=== PATIENT | male | born 1970 | race Caucasian/White ===

== ENCOUNTER 2017-01-23 13:46 | Emergency (ER) | payer MEDICARE, OTHER ==
[2017-01-23] MEDS ORDERED: DIPH,PERTUS(ACELL)TETVAC-LF 0.5 ML VIAL IM ONE (14:03)
--- NOTE | 2017-01-23 14:26 | ED ---
General Adult HPI - General Chief complaint: Extremity Injury, Lower Stated complaint: foot injury Time Seen by Provider: 01/23/17 13:57 Source: patient, RN notes reviewed Mode of arrival: ambulatory Limitations: no limitations - History of Present Illness Initial comments: This is a 47-year-old male who presents with left foot pain. Patient states he dropped a computer panel on his foot last night around 11 PM. Patient has noticed some increased bruising and swelling. Patient has noticed a laceration on the foot as well. Patient denies any numbness/weakness/tingling. Patient is ambulatory but states is painful. Patient is not up-to-date on his tetanus shot.Patient denies any recent fever, chills, shortness breath, chest pain, abdominal pain, nausea/vomiting/diarrhea, back pain, hematuria, headache, or visual changes, or any other complaints. - Related Data Home Medications Medication Instructions Recorded Confirmed Cyclobenzaprine [Flexeril] 10 mg PO TID PRN 01/23/17 01/23/17 HYDROcodone/APAP 7.5-325MG [[place] 1 tab PO BID PRN 01/23/17 01/23/17 7.5-325] Lisinopril [Zestril] 20 mg PO DAILY 01/23/17 01/23/17 Loratadine [Claritin] 10 mg PO DAILY 01/23/17 01/23/17 Omeprazole 20 mg PO BID 01/23/17 01/23/17 Tolterodine [Detrol] 2 mg PO BID 01/23/17 01/23/17 Previous Rx's Medication Instructions Recorded Cephalexin [Keflex] 500 mg PO Q12HR 5 Days 01/23/17 Allergies Allergy/AdvReac Type Severity Reaction Status Date / Time No Known Allergies Allergy Unverified 01/23/17 14:05 Review of Systems ROS Statement: Those systems with pertinent positive or pertinent negative responses have been documented in the HPI. ROS Other: All systems not noted in ROS Statement are negative. Past Medical History Past Medical History: No Reported History History of Any Multi-Drug Resistant Organisms: None Reported Past Surgical History: No Surgical Hx Reported Past Psychological History: No Psychological Hx Reported Smoking Status: Never smoker Past Alcohol Use History: None Reported Past Drug Use History: None Reported General Exam - General Exam Comments Initial Comments: General: The patient is awake and alert, in no distress, and does not appear acutely ill. Neck: The neck is supple, there is no tenderness or JVD. Cardiovascular: There is a regular rate and rhythm. No murmur, rub or gallop is appreciated. Respiratory: Lungs are clear to auscultation, respirations are non-labored, breath sounds are equal. No wheezes, stridor, rales, or rhonchi. Musculoskeletal: There is tenderness to palpation over the third digit of the left foot with ecchymosis around the third MTP joint. Patient has full range of motion, strength 5/5 and Sensation intact. Posterior tibial and dorsalis pedis pulses are 2+ bilaterally. Capillary refill is normal at less than 2 seconds. Neurological: A&O x 3. CN II-XII intact, There are no obvious motor or sensory deficits. Coordination appears grossly intact. Speech is normal. Skin: There is some mild ecchymosis around the third MTP joint of the left foot. There is an approximately 1.5 cm superficial laceration to the third digit of the left foot. Skin is warm and dry and no rashes or lesions are noted. Psychiatric: Normal mood and affect. Limitations: no limitations Course Vital Signs 01/23/17 14:09 Temperature 98.5 F Pulse Rate 107 H Respiratory 20 Rate Blood Pressure 136/76 O2 Sat by Pulse 96 Oximetry Procedures - Procedures Initial comment: The skin was anesthetized with 1% lidocaine. The laceration was then thoroughly cleansed and irrigated with normal saline. The wound was inspected, and there was no evidence of injury to deep structures. No foreign body was noted in the wound. A total of 3 skin sutures were placed utilizing 5-0 Ethilon. Laceration is approx 1.5 cm. Medical Decision Making - Medical Decision Making This is a 47-year-old male presents with left foot pain since 11 PM last night. On physical exam There is tenderness to palpation over the third digit of the left foot with ecchymosis around the third MTP joint. Patient has full range of motion, strength 5/5 and Sensation intact. Posterior tibial and dorsalis pedis pulses are 2+ bilaterally. Capillary refill is normal at less than 2 seconds. There is some mild ecchymosis around the third MTP joint of the left foot. There is an approximately 1.5 cm superficial laceration to the third digit of the left foot. An x-ray of the left foot was done and reviewed showing :There is no acute fracture or dislocation in the left foot. Reportedly Dr. Hernandez. Patient needs wound closure as wound edges are not well approximated. The skin was anesthetized with 1% lidocaine. The laceration was then thoroughly cleansed and irrigated with normal saline. The wound was inspected, and there was no evidence of injury to deep structures. No foreign body was noted in the wound. A total of 3 skin sutures were placed utilizing 5-0 Ethilon. Laceration is approx 1.5 cm. I discussed the risk of infection with wounds that are closed after 6-8 hours. Patient's wound has been open since 11 PM last night. I discussed signs and symptoms of infection. Discussed that patient needs to come in sooner next time if he thinks a wound will need stitches. Patient was given a tetanus shot in the [facility]. Patient will be put on a short course of Keflex. Discussed Neosporin to the wound. Discussed return parameters. I discussed occult fracture. I discussed that sutures need to be removed in 8-10 days. I discussed that rinsing and showering are okay but to avoid submerging the wound in water. Discussed [id number] Tylenol and Motrin as needed for any pain. Discussed keep the wound clean and dry and covered. Discussed that patient should follow up with PCP in one to 2 days or return to the [facility] for any worsening symptoms or any further concerns. Patient was receptive to this plan patient was discharged home. Disposition Clinical Impression: Laceration, Foot contusion Disposition: HOME SELF-CARE Condition: Good Instructions: Foot Contusion (ED), Care For Your Stitches (ED), Laceration (ED) Additional Instructions: Please have sutures removed in 8-10 days. Please finish entire course of antibiotics. Please use Tylenol and Motrin for pain. May use ice to the area. Please do not submerge the wound in water but rinsing and showering are okay. Please keep wound clean, dry, covered and may apply Neosporin to it. Please watch for signs and symptoms of infection such as increasing redness, swelling, tenderness or any drainage. If symptoms do not improve in the next 7 days repeat x-rays may be needed to rule out occult fracture. Please use medication as discussed. Please follow-up with family doctor in the next 2 days of symptoms have not improved. Please return to emergency room if the symptoms increase or worsen or for any other concerns. Prescriptions: Cephalexin [Keflex] 500 mg PO Q12HR 5 Days Referrals: Max Brown MD [Primary Care Provider] - 1-2 days Time of Disposition: 15:21
--- NOTE | 2017-01-23 14:46 | XR ---
EXAMINATION TYPE: XR foot complete LT DATE OF EXAM: 01/23/2017 2:40 PM CLINICAL HISTORY: Left foot pain after injury worse over second digit, object dropped on foot TECHNIQUE: Frontal, lateral, and oblique images of the left foot are obtained. COMPARISON: None FINDINGS: There is no acute fracture/dislocation evident in the left foot. There is varus positionin g fourth and fifth and flexion of second through fifth toes. The overlying soft tissue appears unrem arkable. IMPRESSION: There is no acute fracture or dislocation in the left foot.
[2017-01-23 15:28] VITALS: BP 141/66; PULSE 89; RESP 18; TEMP 97.8
== END 2017-01-23 15:27 | disposition home or self-care (01) ==
LOC: EC 13:46
DX: S91.312A Laceration without foreign body, left foot, initial encounter (principal); Z23 Encounter for immunization; Z79.899 Other long term (current) drug therapy; W20.8XXA Other cause of strike by thrown, projected or falling object, initial encounter
CPT/HCPCS: 12001; 90471; 90715; 99283

== ENCOUNTER → 2020-04-23 | Outpatient (CLI) | payer MEDICARE, OTHER ==
[2020-04-23 11:07] LABS: Basophils % (A) 0 %; Eosinophils # (A) 0.4 k/uL (0-0.7); Eosinophils % (A) 6 %; HCT 49.4 % (39.0-53.0); HGB 16.6 gm/dL (13.0-17.5); Lymphocytes # (A) 1.5 k/uL (1.0-4.8); Lymphocytes % (A) 23 %; MCH 28.9 pg (25.0-35.0); MCHC 33.6 g/dL (31.0-37.0); Mean Platelet Volume 8.1; Monocytes # (A) 0.4 k/uL (0-1.0); Monocytes % (A) 6 %; Neutrophils # (A) 4.3 k/uL (1.3-7.7); Neutrophils % (A) 63 %; Platelet Count 289 k/uL (150-450); RBC 5.75 m/uL (4.30-5.90); RDW 13.4 % (11.5-15.5); WBC 6.8 k/uL (3.8-10.6)
[2020-04-23 16:26] LABS: African American GFR (CKD) 90.2 (60.0-200.0); Albumin 4.8 g/dL (3.80-4.90); Albumin/Globulin Ratio 2.29 (1.60-3.17); Anion Gap 8.9 mmol/L (4.00-12.00); BUN/Creat Ratio 13.64 Ratio (12.00-20.00); Calcium 9.7 mg/dL (8.7-10.3); Carbon Dioxide 27.1 mmol/L (21.6-31.8); Globulin 2.1 g/dL (1.6-3.3); Non-African American GFR(CKD) 77.9 (60.0-200.0); Potassium 4.7 mmol/L (3.5-5.5); Total Bilirubin 0.8 mg/dL (0.2-1.2); Total Protein 6.9 g/dL (6.2-8.2)
[2020-04-23 18:51] LABS: Hemoglobin A1C 4.7 % (4.0-6.0)
[2020-04-25 04:36] LABS: Hepatitis A Antibody IgM Non-Reactive (Non-Reactive); Hepatitis B Core IgM Non-Reactive (Non-Reactive); Hepatitis B Surface Antigen Non-Reactive (Non-Reactive); Hepatitis C IgG Antibody Non-Reactive (Non-Reactive)
== END | disposition home or self-care (01) ==
LOC: LABWHC1 09:22
PROVIDERS: ATTEND Internal Medicine
DX: I10 Essential (primary) hypertension (principal); N40.1 Benign prostatic hyperplasia with lower urinary tract symptoms; R73.01 Impaired fasting glucose; R30.0 Dysuria; R94.5 Abnormal results of liver function studies
CPT/HCPCS: 36415; 80053; 80074; 83036; 84153; 85025

== ENCOUNTER 2021-01-11 06:31 | Emergency (ER) | payer MEDICARE, OTHER ==
[2021-01-11 06:40] VITALS: BP 164/96; PULSE 103; RESP 24; TEMP 98.1
--- NOTE | 2021-01-11 06:55 | ED ---
Male Urogenital HPI - General Chief complaint: Urogenital Stated complaint: Urogenital Time Seen by Provider: 01/11/21 06:41 Source: patient, RN notes reviewed Mode of arrival: ambulatory Limitations: no limitations - History of Present Illness Initial comments: 50-year-old male presents emergency Department with chief complaint of urinary frequency, lower abdominal pressure. Patient states that she he suffer with overactive bladder and which she is been on multiple medications. Patient does see Dr. Dean urologist in which patient states he feels a medication stop working. Patient's that she's been going a small moderate 10-30 minutes. denies fevers chills back pain flank pain on the usual. Patient denies any bladder retention the past or any bowel incontinence. Patient denies any lower extremity paresthesias. Patient denies any recent trauma no prior urinary tract infections. - Related Data Home Medications Medication Instructions Recorded Confirmed Cyclobenzaprine [Flexeril] 10 mg PO TID PRN 01/23/17 01/23/17 HYDROcodone/APAP 7.5-325MG [[place] 1 tab PO BID PRN 01/23/17 01/23/17 7.5-325] Loratadine [Claritin] 10 mg PO DAILY 01/23/17 01/23/17 Omeprazole 20 mg PO BID 01/23/17 01/23/17 Tolterodine [Detrol] 2 mg PO BID 01/23/17 01/23/17 lisinopriL [Zestril] 20 mg PO DAILY 01/23/17 01/23/17 Previous Rx's Medication Instructions Recorded Cephalexin [Keflex] 500 mg PO Q12HR 5 Days cap 01/23/17 Allergies Allergy/AdvReac Type Severity Reaction Status Date / Time No Known Allergies Allergy Unverified 01/11/21 06:40 Review of Systems ROS Statement: Those systems with pertinent positive or pertinent negative responses have been documented in the HPI. ROS Other: All systems not noted in ROS Statement are negative. Past Medical History Past Medical History: No Reported History Additional Past Medical History / Comment(s): urinary frequency History of Any Multi-Drug Resistant Organisms: None Reported Past Surgical History: No Surgical Hx Reported Past Psychological History: No Psychological Hx Reported Smoking Status: Never smoker Past Alcohol Use History: None Reported Past Drug Use History: None Reported General Exam Limitations: no limitations General appearance: alert, in no apparent distress Head exam: Present: atraumatic, normocephalic, normal inspection Eye exam: Present: normal appearance, PERRL, EOMI. Absent: scleral icterus, conjunctival injection, periorbital swelling Respiratory exam: Present: normal lung sounds bilaterally. Absent: respiratory distress, wheezes, rales, rhonchi, stridor Cardiovascular Exam: Present: regular rate, normal rhythm, normal heart sounds. Absent: systolic murmur, diastolic murmur, rubs, gallop, clicks GI/Abdominal exam: Present: soft, tenderness (Mild suprapubic), normal bowel sounds. Absent: distended, guarding, rebound, rigid Back exam: Absent: CVA tenderness (R), CVA tenderness (L) Neurological exam: Present: alert, oriented X3 Skin exam: Present: warm, dry, intact, normal color. Absent: rash Course Vital Signs 01/11/21 06:34 Temperature 98.1 F Pulse Rate 103 H Respiratory 24 Rate Blood Pressure 164/96 O2 Sat by Pulse 98 Oximetry Medical Decision Making - Medical Decision Making Bladder scan does not show any evidence of retention. Patient was able to urinate fully empty. Patient urinalysis does not reveal any significant glucose within the urine or any signs of infection. Patient will be discharged advised to call his urologist. Patient's is very anxious requesting medications for anxiety. he is not suicidal or homicidal. - Lab Data Lab Results 01/11/21 Range/Units 06:46 Urine Color Yellow Urine Appearance Clear (Clear) Urine pH 6.0 (5.0-8.0) Ur Specific [place] 1.021 (1.001-1.035) Urine Protein Trace H (Negative) Urine Glucose (UA) Negative (Negative) Urine Ketones Negative (Negative) Urine Blood Negative (Negative) Urine Nitrite Negative (Negative) Urine Bilirubin Negative (Negative) Urine Urobilinogen <2.0 (<2.0) mg/dL Ur Leukocyte Esterase Negative (Negative) Disposition Clinical Impression: Overactive bladder, Anxiety Disposition: HOME SELF-CARE Condition: Stable Instructions (If sedation given, give patient instructions): Urinary Urgency and Frequency (DC) Additional Instructions: Please return to the Emergency Department if symptoms worsen or any other conc erns. Is patient prescribed a controlled substance at d/c from ED?: No Referrals: Max Brown MD [Primary Care Provider] - 1-2 days Kamar Dean MD [STAFF PHYSICIAN] - 1-2 days Time of Disposition: 07:19
[2021-01-11 06:59] LABS: Appearance,Urine Clear (Clear); Bilirubin,Urine Negative (Negative); Blood,Urine Negative (Negative); Color,Urine Yellow; Glucose,Urine (UA) Negative (Negative); Ketones,Urine Negative (Negative); Leukocyte Esterase,Urine Negative (Negative); Nitrite,Urine Negative (Negative); Protein,Urine Trace (Negative); Specific Gravity,Urine 1.021 (1.001-1.035); Urobilinogen,Urine <2.0 mg/dL (<2.0)
[2021-01-11] MEDS ORDERED: LORazepam 1 MG TAB PO STA (07:18)
== END 2021-01-11 07:47 | disposition home or self-care (01) ==
LOC: EC 06:31
DX: N32.81 Overactive bladder (principal); F41.9 Anxiety disorder, unspecified; Z79.899 Other long term (current) drug therapy
CPT/HCPCS: 51798; 81003; 99283

== ENCOUNTER → 2021-01-12 | Outpatient (CLI) | payer MEDICARE, OTHER ==
[2021-01-12 20:21] LABS: African American GFR (CKD) 101.3 (60.0-200.0); Albumin/Globulin Ratio 2.94 (1.60-3.17); Anion Gap 6.9 mmol/L (4.00-12.00); Calcium 9.7 mg/dL (8.7-10.3); Carbon Dioxide 26.1 mmol/L (21.6-31.8); Globulin 1.7 g/dL (1.6-3.3); Non-African American GFR(CKD) 87.4 (60.0-200.0); Potassium 4.4 mmol/L (3.5-5.5); Total Bilirubin 0.7 mg/dL (0.2-1.2); Total Protein 6.7 g/dL (6.2-8.2)
== END | disposition home or self-care (01) ==
LOC: LABWHC1 12:12
PROVIDERS: ATTEND Internal Medicine
DX: I10 Essential (primary) hypertension (principal)
CPT/HCPCS: 36415; 80053

== ENCOUNTER 2021-05-23 | Emergency (ER) | payer MEDICARE, OTHER | END 2021-05-23 21:45 | disposition home or self-care (01) ==

== ENCOUNTER 2021-05-24 | Emergency (ER) | payer MEDICARE, OTHER | END 2021-05-24 03:55 | disposition home or self-care (01) ==

== ENCOUNTER 2021-05-31 12:43 | Emergency (ER) | payer MEDICARE, OTHER ==
[2021-05-31 12:47] VITALS: BP 132/85; PULSE 81; RESP 18; TEMP 98.2
[2021-05-31] MEDS ORDERED: oxyCODONE-APAP 7.5-325MG 1 EACH TAB PO STA (12:56)
--- NOTE | 2021-05-31 12:57 | ED ---
General Adult HPI - General Chief complaint: Recheck/Abnormal Lab/Rx Stated complaint: med refill Time Seen by Provider: 05/31/21 12:44 Source: patient, RN notes reviewed, old records reviewed Mode of arrival: ambulatory Limitations: no limitations - History of Present Illness Initial comments: 51-year-old male with history of chronic pain, anxiety presents for medication refill. He states she's been out of his Percocet 7.5 mg. His dose was recentlyadjusted from 4 times daily to 3 times daily. He did have a hospital evaluation about one week ago for suspected medication overuse. He states he's not had any of his pain medication the last 24 hours. This is for chronic neck and back pain. 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 She has no other complaints. - Related Data Home Medications Medication Instructions Recorded Confirmed Cyclobenzaprine [Flexeril] 10 mg PO TID PRN 01/23/17 01/23/17 HYDROcodone/APAP 7.5-325MG [[place] 1 tab PO BID PRN 01/23/17 01/23/17 7.5-325] Loratadine [Claritin] 10 mg PO DAILY 01/23/17 01/23/17 Omeprazole 20 mg PO BID 01/23/17 01/23/17 Tolterodine [Detrol] 2 mg PO BID 01/23/17 01/23/17 lisinopriL [Zestril] 20 mg PO DAILY 01/23/17 01/23/17 Previous Rx's Medication Instructions Recorded Cephalexin [Keflex] 500 mg PO Q12HR 5 Days cap 01/23/17 LORazepam [Ativan] 1 mg PO TID 3 Days #9 tab 05/24/21 traZODone HCL [Desyrel] 50 mg PO TID #9 tab 05/24/21 Allergies Allergy/AdvReac Type Severity Reaction Status Date / Time No Known Allergies Allergy Verified 05/31/21 12:47 Review of Systems ROS Statement: Those systems with pertinent positive or pertinent negative responses have been documented in the HPI. ROS Other: All systems not noted in ROS Statement are negative. Past Medical History Past Medical History: Hypertension Additional Past Medical History / Comment(s): urinary frequency , chronic pain History of Any Multi-Drug Resistant Organisms: None Reported Past Surgical History: No Surgical Hx Reported Past Psychological History: Anxiety, Depression Smoking Status: Never smoker Past Alcohol Use History: None Reported Past Drug Use History: None Reported General Exam Limitations: no limitations General appearance: alert, anxious Head exam: Present: atraumatic, normocephalic Eye exam: Present: normal appearance, PERRL ENT exam: Present: normal exam Neck exam: Present: normal inspection. Absent: tenderness, meningismus Respiratory exam: Present: normal lung sounds bilaterally. Absent: respiratory distress, wheezes Cardiovascular Exam: Present: regular rate, normal rhythm GI/Abdominal exam: Present: soft. Absent: distended, tenderness, guarding Extremities exam: Present: normal inspection, normal capillary refill Neurological exam: Present: alert, oriented X3, CN II-XII intact. Absent: motor sensory deficit Psychiatric exam: Present: anxious Skin exam: Present: warm, dry, intact Course Vital Signs 05/31/21 12:44 Temperature 98.2 F Pulse Rate 81 Respiratory 18 Rate Blood Pressure 132/85 O2 Sat by Pulse 97 Oximetry Medical Decision Making - Medical Decision Making 51-year-old male with medication refill request for Percocet 7.5 mg. He is given a total of 2 tablets to cover him for the next 24 hours. No prescription is written. 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 Disposition Clinical Impression: Medication refill, Chronic pain Disposition: HOME SELF-CARE Condition: Fair Instructions (If sedation given, give patient instructions): Chronic Pain (ED), Medicine Refill (ED) Is patient prescribed a controlled substance at d/c from ED?: No Referrals: Max Brown MD [Primary Care Provider] - 1-2 days Jorge L Garcia MD [STAFF PHYSICIAN] - 1-2 days Time of Disposition: 12:57
== END 2021-05-31 13:22 | disposition home or self-care (01) ==
LOC: EC 12:43
DX: Z76.0 Encounter for issue of repeat prescription (principal); G89.29 Other chronic pain; I10 Essential (primary) hypertension
CPT/HCPCS: 99281

== ENCOUNTER 2021-06-01 02:52 | Emergency (ER) | payer MEDICARE, OTHER ==
--- NOTE | 2021-06-01 03:11 | ED ---
Psych HPI - General Stated Complaint: Mental Health Time Seen by Provider: 06/01/21 03:09 Source: RN notes reviewed, old records reviewed Limitations: no limitations - History of Present Illness Initial Comments: This is a 51-year-old male seen here yesterday for similar complaints patient complaining of need for medication refill admits to anxiety. Patient does not want to see psychiatry. Patient currently is denying any Homicidal or suicidal denies drugs or alcohol. Patient is off medications as he has ran out of medications at home. His fever chest pain shortness breath or abdominal pain. Patient at times admits to difficulty with urination but no abdominal pain. MD Complaint: other (Patient feels anxious is unable to sleep) -: unknown Associated Psychiatric Symptoms: racing thoughts History of same: Yes Quality: constant, getting worse Worsens With: drug use (Patient is off prescription medication as he has ran out of medications) Context: significant life stressor Associated Symptoms: insomnia Treatments Prior to Arrival: none, other (He does not want to be seen by psychiatry today) - Related Data Home Medications Medication Instructions Recorded Confirmed Cyclobenzaprine [Flexeril] 10 mg PO TID PRN 01/23/17 01/23/17 HYDROcodone/APAP 7.5-325MG [[place] 1 tab PO BID PRN 01/23/17 01/23/17 7.5-325] Loratadine [Claritin] 10 mg PO DAILY 01/23/17 01/23/17 Omeprazole 20 mg PO BID 01/23/17 01/23/17 Tolterodine [Detrol] 2 mg PO BID 01/23/17 01/23/17 lisinopriL [Zestril] 20 mg PO DAILY 01/23/17 01/23/17 Previous Rx's Medication Instructions Recorded Cephalexin [Keflex] 500 mg PO Q12HR 5 Days cap 01/23/17 LORazepam [Ativan] 1 mg PO TID 3 Days #9 tab 05/24/21 traZODone HCL [Desyrel] 50 mg PO TID #9 tab 05/24/21 Allergies Allergy/AdvReac Type Severity Reaction Status Date / Time No Known Allergies Allergy Verified 06/01/21 03:18 Review of Systems ROS Statement: Those systems with pertinent positive or pertinent negative responses have been documented in the HPI. ROS Other: All systems not noted in ROS Statement are negative. Past Medical History Past Medical History: Hypertension Additional Past Medical History / Comment(s): urinary frequency , chronic pain History of Any Multi-Drug Resistant Organisms: None Reported Past Surgical History: No Surgical Hx Reported Past Psychological History: Anxiety, Depression Smoking Status: Never smoker Past Alcohol Use History: None Reported Past Drug Use History: None Reported General Exam General appearance: alert, in no apparent distress, anxious Head exam: Present: atraumatic, normocephalic, normal inspection Eye exam: Present: normal appearance, PERRL, EOMI. Absent: scleral icterus, conjunctival injection, periorbital swelling ENT exam: Present: normal exam, mucous membranes moist Neck exam: Present: normal inspection. Absent: tenderness, meningismus, lymphadenopathy Respiratory exam: Present: normal lung sounds bilaterally. Absent: respiratory distress, wheezes, rales, rhonchi, stridor Cardiovascular Exam: Present: regular rate, normal rhythm, normal heart sounds. Absent: systolic murmur, diastolic murmur, rubs, gallop, clicks GI/Abdominal exam: Present: soft, normal bowel sounds. Absent: distended, tenderness, guarding, rebound, rigid Extremities exam: Present: normal inspection, full ROM, normal capillary refill. Absent: tenderness, pedal edema, joint swelling, calf tenderness Back exam: Present: normal inspection Neurological exam: Present: alert, oriented X3, CN II-XII intact Psychiatric exam: Present: normal affect, normal mood Skin exam: Present: warm, dry, intact, normal color. Absent: rash Course Vital Signs 06/01/21 06/01/21 03:15 04:47 Temperature 98.7 F Pulse Rate 90 72 Respiratory 20 16 Rate Blood Pressure 169/100 129/83 O2 Sat by Pulse 97 98 Oximetry - Reevaluation(s) Reevaluation #1: 06/01/21 Medical record is reviewed Patient symptoms are improved here in the emergency department Patient informed of results and questions answered Patient is in no acute distress Medical Decision Making - Medical Decision Making 51 male DF for evaluation with a few ER visits as of late for medication refills and anxiety. Patient having difficulty seeing primary care, will be discharged home no refill today Disposition Clinical Impression: Anxiety, Medication refill, Insomnia, Chronic pain Disposition: HOME SELF-CARE Condition: Fair Instructions (If sedation given, give patient instructions): Generalized Anxiety Disorder (ED) Is patient prescribed a controlled substance at d/c from ED?: No Referrals: Max Brown MD [Primary Care Provider] - 1-2 days
[2021-06-01 03:19] VITALS: TEMP 98.7
[2021-06-01] MEDS ORDERED: diazePAM 5 MG TAB PO STA (03:48)
[2021-06-01] MEDS ORDERED: oxyCODONE-APAP 7.5-325MG 1 EACH TAB PO STA (03:48)
[2021-06-01 04:59] VITALS: BP 129/83; PULSE 72; RESP 16
== END 2021-06-01 05:03 | disposition home or self-care (01) ==
LOC: EC 02:52
DX: F41.9 Anxiety disorder, unspecified (principal); G47.00 Insomnia, unspecified; R39.198 Other difficulties with micturition; I10 Essential (primary) hypertension; G89.29 Other chronic pain; Z76.0 Encounter for issue of repeat prescription; Z79.899 Other long term (current) drug therapy
CPT/HCPCS: 51798; 99284

== ENCOUNTER 2021-06-01 19:06 | Emergency (ER) | payer MEDICARE, OTHER ==
[2021-06-01 19:52] VITALS: BP 128/93; PULSE 73; RESP 18; TEMP 98.5
[2021-06-01] MEDS ORDERED: MORPHINE SULFATE 4 MG/ML SYRINGE IM STA (20:26)
[2021-06-01] MEDS ORDERED: KETOROLAC 15 MG/ML 1 ML VIAL IM STA (20:30)
--- NOTE | 2021-06-01 20:39 | ED ---
Recheck HPI - General Chief Complaint: Recheck/Abnormal Lab/Rx Stated Complaint: withdrawal Time Seen by Provider: 06/01/21 20:13 Source: patient, RN notes reviewed Mode of arrival: ambulatory Limitations: no limitations - History of Present Illness Initial Comments: Patient is a 51-year-old male that presents to emergency department stating that he was not able to fill his Percocet prescription from his pain management doctor today. He notes he came in for pain medication to hold him over and tying his pain management prescription. Patient had no other symptoms complaints or issues. He was a well-appearing 51-year-old. He denied any chest pain shortness breath headache nausea vomiting diarrhea constipation fever fatigue chills. - Related Data Home Medications Medication Instructions Recorded Confirmed Cyclobenzaprine [Flexeril] 10 mg PO TID PRN 01/23/17 01/23/17 HYDROcodone/APAP 7.5-325MG [[place] 1 tab PO BID PRN 01/23/17 01/23/17 7.5-325] Loratadine [Claritin] 10 mg PO DAILY 01/23/17 01/23/17 Omeprazole 20 mg PO BID 01/23/17 01/23/17 Tolterodine [Detrol] 2 mg PO BID 01/23/17 01/23/17 lisinopriL [Zestril] 20 mg PO DAILY 01/23/17 01/23/17 Previous Rx's Medication Instructions Recorded Cephalexin [Keflex] 500 mg PO Q12HR 5 Days cap 01/23/17 LORazepam [Ativan] 1 mg PO TID 3 Days #9 tab 05/24/21 traZODone HCL [Desyrel] 50 mg PO TID #9 tab 05/24/21 Allergies Allergy/AdvReac Type Severity Reaction Status Date / Time No Known Allergies Allergy Verified 06/01/21 19:52 Review of Systems ROS Statement: Those systems with pertinent positive or pertinent negative responses have been documented in the HPI. ROS Other: All systems not noted in ROS Statement are negative. Past Medical History Past Medical History: Hypertension Additional Past Medical History / Comment(s): urinary frequency , chronic pain History of Any Multi-Drug Resistant Organisms: None Reported Past Surgical History: No Surgical Hx Reported Past Psychological History: Anxiety, Depression Smoking Status: Never smoker Past Alcohol Use History: None Reported Past Drug Use History: None Reported General Exam Limitations: no limitations General appearance: alert, in no apparent distress Head exam: Present: atraumatic, normocephalic, normal inspection Eye exam: Present: normal appearance, PERRL, EOMI. Absent: scleral icterus, conjunctival injection, periorbital swelling Neck exam: Present: normal inspection Respiratory exam: Present: normal lung sounds bilaterally. Absent: respiratory distress, wheezes, rales, rhonchi, stridor Cardiovascular Exam: Present: regular rate, normal rhythm, normal heart sounds. Absent: systolic murmur, diastolic murmur, rubs, gallop, clicks GI/Abdominal exam: Present: soft, normal bowel sounds. Absent: distended, tenderness, guarding, rebound, rigid Extremities exam: Present: normal inspection, full ROM, normal capillary refill. Absent: tenderness, pedal edema, joint swelling, calf tenderness Neurological exam: Present: alert, oriented X3 Psychiatric exam: Present: normal affect, normal mood Skin exam: Present: warm, dry, intact, normal color. Absent: rash Course Vital Signs 06/01/21 19:48 Temperature 98.5 F Pulse Rate 73 Respiratory 18 Rate Blood Pressure 128/93 O2 Sat by Pulse 98 Oximetry Medical Decision Making - Medical Decision Making 51-year-old male complaining of pain unable to fill his Percocet prescription from his pain management doctor. 15 mg of Toradol ordered. Case discussed with Dr. Simons, patient discharge home with follow-up to pain management. Disposition Clinical Impression: Chronic pain Disposition: HOME SELF-CARE Condition: Stable Instructions (If sedation given, give patient instructions): Chronic Back Pain (DC) Additional Instructions: Please return to the Emergency Department if symptoms worsen or any other concerns. Follow-up with pain management doctor in the next 1-2 days. Is patient prescribed a controlled substance at d/c from ED?: No Referrals: Max Brown MD [Primary Care Provider] - 1-2 days Time of Disposition: 20:39
== END 2021-06-01 20:49 | disposition home or self-care (01) ==
LOC: EC 19:06
DX: G89.29 Other chronic pain (principal); I10 Essential (primary) hypertension; Z79.899 Other long term (current) drug therapy
CPT/HCPCS: 96372; 99282

== ENCOUNTER 2021-06-25 04:34 | Emergency (ER) | payer MEDICARE, OTHER ==
[2021-06-25 04:39] VITALS: BP 140/90; PULSE 89; RESP 24; TEMP 98.3
[2021-06-25] MEDS ORDERED: diazePAM 5 MG TAB PO STA (04:56)
[2021-06-25] MEDS ORDERED: LORazepam 1 MG TAB PO STA (04:56)
--- NOTE | 2021-06-25 04:56 | ED ---
Anxiety HPI - General Chief Complaint: Anxiety Stated Complaint: Anxiety Time Seen by Provider: 06/25/21 04:41 Source: patient, RN notes reviewed, old records reviewed Mode of arrival: ambulatory Limitations: no limitations - History of Present Illness Initial Comments: This is a 51-year-old male to the ER today. Patient presents today for evaluation of anxiety. Patient is well-known or facility for anxiety and difficulty with sleeping sometimes difficulty with urination. At this point patient has no real complaints. Shortness breath chest pain not homicidal or suicidal thoughts no drugs or alcohol. MD Complaint: anxiety -: unknown Symptoms: palpitations, sense of impending doom Place: home Previous History of Same: Yes Severity: moderate Quality: intermittent Provoking factors: none known Improves With: nothing Worsens With: nothing Associated symptoms: palpitations - Related Data Home Medications: Home Medications Medication Instructions Recorded Confirmed Omeprazole 20 mg PO BID PRN 01/23/17 06/27/21 lisinopriL [Zestril] 20 mg PO DAILY 01/23/17 06/27/21 Ibuprofen [Motrin] 800 mg PO TID PRN 06/27/21 06/27/21 LORazepam [Ativan] 1 mg PO HS 06/27/21 06/27/21 QUEtiapine [SEROquel] 50 mg PO HS 06/27/21 06/27/21 Trospium Chloride 20 mg PO BID 06/27/21 06/27/21 oxyCODONE-APAP 10-325MG [Percocet 1 tab PO TID PRN 06/27/21 06/27/21 10-325 mg] Previous Rx's Medication Instructions Recorded LORazepam [Ativan] 1 mg PO DAILY PRN 4 Days #4 tab 06/27/21 Allergies/Adverse Reactions: Allergies Allergy/AdvReac Type Severity Reaction Status Date / Time No Known Allergies Allergy Verified 06/27/21 15:47 Review of Systems ROS Statement: Those systems with pertinent positive or pertinent negative responses have been documented in the HPI. ROS Other: All systems not noted in ROS Statement are negative. Past Medical History Past Medical History: Hypertension Additional Past Medical History / Comment(s): urinary frequency , chronic pain History of Any Multi-Drug Resistant Organisms: None Reported Past Surgical History: No Surgical Hx Reported Past Psychological History: Anxiety, Depression Smoking Status: Never smoker Past Alcohol Use History: None Reported Past Drug Use History: None Reported General Exam Limitations: no limitations General appearance: anxious Head exam: Present: atraumatic, normocephalic, normal inspection Eye exam: Present: normal appearance, PERRL, EOMI. Absent: scleral icterus, conjunctival injection, periorbital swelling ENT exam: Present: normal exam, mucous membranes moist Neck exam: Present: normal inspection. Absent: tenderness, meningismus, lymphadenopathy Respiratory exam: Present: normal lung sounds bilaterally. Absent: respiratory distress, wheezes, rales, rhonchi, stridor Cardiovascular Exam: Present: regular rate, normal rhythm, normal heart sounds. Absent: systolic murmur, diastolic murmur, rubs, gallop, clicks GI/Abdominal exam: Present: soft, normal bowel sounds. Absent: distended, tenderness, guarding, rebound, rigid Extremities exam: Present: normal inspection, full ROM, normal capillary refill. Absent: tenderness, pedal edema, joint swelling, calf tenderness Back exam: Present: normal inspection Neurological exam: Present: alert, oriented X3, CN II-XII intact Psychiatric exam: Present: normal affect, normal mood Skin exam: Present: warm, dry, intact, normal color. Absent: rash Course Vital Signs 06/25/21 04:34 Temperature 98.3 F Pulse Rate 89 Respiratory 24 Rate Blood Pressure 140/90 O2 Sat by Pulse 97 Oximetry - Reevaluation(s) Reevaluation #1: 06/25/21 Medical record is reviewed Symptoms are improved here in the emergency department Patient informed results and questions have been answered Patient is in no distress Medical Decision Making - Medical Decision Making 51 male to the ER for anxiety and insomnia. Patient given medication here in the ER topical somnolence and patient can be discharged home Disposition Clinical Impression: Acute anxiety, Insomnia Disposition: HOME SELF-CARE Condition: Good Instructions (If sedation given, give patient instructions): Generalized Anxiety Disorder (ED) Is patient prescribed a controlled substance at d/c from ED?: No Referrals: Max Brown MD [Primary Care Provider] - 1-2 days
== END 2021-06-25 05:15 | disposition home or self-care (01) ==
LOC: EC 04:34
DX: F41.9 Anxiety disorder, unspecified (principal); G47.00 Insomnia, unspecified; I10 Essential (primary) hypertension; Z79.899 Other long term (current) drug therapy
CPT/HCPCS: 99284

== ENCOUNTER 2021-06-27 13:07 | Emergency (ER) | payer MEDICARE, OTHER ==
[2021-06-27 13:11] VITALS: TEMP 98.5
--- NOTE | 2021-06-27 13:27 | ED ---
General Adult HPI - General Source: patient Mode of arrival: ambulatory Limitations: no limitations <Mele Puri - Last Filed: 06/27/21 13:25> <David Hernandez - Last Filed: 06/27/21 20:22> - General Chief complaint: Recheck/Abnormal Lab/Rx Stated complaint: Mental health Time Seen by Provider: 06/27/21 13:14 - History of Present Illness Initial comments: Dictation was produced using [employer] dictation software. please excuse any grammatical, word or spelling errors. Chief Complaint: 51-year-old male sent by primary care physician for EPS evaluation. History of Present Illness: 51-year-old male who presents to the emergency department for overactive bladder and insomnia. He has past medical history of schizophrenia and bipolar disease. Patient denies suicidal or homicidal ideation. Denies any paranoia. He went to his primary care doctor's office is told to come to the ER for EPS evaluation and possible inpatient psych admission. Does complain of some mild suprapubic cramping. States that because he urinates frequently at night he has trouble sleeping. The ROS documented in this emergency department record has been reviewed and confirmed by me. Those systems with pertinent positive or negative responses have been documented in the HPI. All other systems are other negative and/or noncontributory. PHYSICAL EXAM: General Impression: Alert and oriented x3, not in acute distress HEENT: Normocephalic atraumatic, extra-ocular movements intact, pupils equal and reactive to light bilaterally, mucous membranes moist. Cardiovascular: Heart regular rate and rhythm Chest: Able to complete full sentences, no retractions, no tachypnea Abdomen: abdomen soft, non-tender, non-distended, no organomegaly Musculoskeletal: Pulses present and equal in all extremities, no peripheral edema Motor: no focal deficits noted Neurological: CN II-XII grossly intact, no focal motor or sensory deficits noted Skin: Intact with no visualized rashes Psych: Normal affect and mood ED course: 51-year-old well-appearing male presents with chief complaint of overactive bladder and insomnia. Vital signs upon arrival are within acceptable limits. Patient not showing any signs of psychosis. (Mele Puri) - Related Data Home Medications Medication Instructions Recorded Confirmed Omeprazole 20 mg PO BID PRN 01/23/17 06/27/21 lisinopriL [Zestril] 20 mg PO DAILY 01/23/17 06/27/21 Ibuprofen [Motrin] 800 mg PO TID PRN 06/27/21 06/27/21 LORazepam [Ativan] 1 mg PO HS 06/27/21 06/27/21 QUEtiapine [SEROquel] 50 mg PO HS 06/27/21 06/27/21 Trospium Chloride 20 mg PO BID 06/27/21 06/27/21 oxyCODONE-APAP 10-325MG [Percocet 1 tab PO TID PRN 06/27/21 06/27/21 10-325 mg] Previous Rx's Medication Instructions Recorded LORazepam [Ativan] 1 mg PO DAILY PRN 4 Days #4 tab 06/27/21 Allergies Allergy/AdvReac Type Severity Reaction Status Date / Time No Known Allergies Allergy Verified 06/27/21 15:47 Review of Systems ROS Other: All systems not noted in ROS Statement are negative. <Mele Puri - Last Filed: 06/27/21 13:25> ROS Other: All systems not noted in ROS Statement are negative. <David Hernandez - Last Filed: 06/27/21 20:22> ROS Statement: Those systems with pertinent positive or pertinent negative responses have been documented in the HPI. Past Medical History Past Medical History: Hypertension Additional Past Medical History / Comment(s): urinary frequency , chronic pain History of Any Multi-Drug Resistant Organisms: None Reported Past Surgical History: No Surgical Hx Reported Past Psychological History: Anxiety, Depression Smoking Status: Never smoker Past Alcohol Use History: None Reported Past Drug Use History: None Reported <Mele Puri - Last Filed: 06/27/21 13:25> General Exam Limitations: no limitations <Mele Puri - Last Filed: 06/27/21 13:25> Course Vital Signs 06/27/21 06/27/21 13:08 16:24 Temperature 98.5 F Pulse Rate 91 86 Respiratory 17 18 Rate Blood Pressure 146/94 152/107 O2 Sat by Pulse 98 98 Oximetry Medical Decision Making <David Hernandez - Last Filed: 06/27/21 20:22> - Medical Decision Making Patient was signed out to me pending EPS evaluation. Psychiatry clear the patient for discharge home with follow-up next week. They did request that I provide him with four 1 mg tablets of Ativan which are supplied. I discussed with the patient he was in agreement this plan. Patient was therefore discharged home in fair condition. (David Hernandez) - Lab Data Lab Results 06/27/21 Range/Units 13:20 Urine Color Light Yellow Urine Appearance Clear (Clear) Urine pH 5.5 (5.0-8.0) Ur Specific [place] 1.009 (1.001-1.035) Urine Protein Negative (Negative) Urine Glucose (UA) Negative (Negative) Urine Ketones Negative (Negative) Urine Blood Negative (Negative) Urine Nitrite Negative (Negative) Urine Bilirubin Negative (Negative) Urine Urobilinogen <2.0 (<2.0) mg/dL Ur Leukocyte Esterase Negative (Negative) Disposition <Mele Puri - Last Filed: 06/27/21 13:25> Is patient prescribed a controlled substance at d/c from ED?: Yes If prescribed controlled substance>3 days was MAPS reviewed?: Yes <David Hernandez - Last Filed: 06/27/21 20:22> Clinical Impression: Insomnia, Encounter for psychiatric assessment Disposition: HOME SELF-CARE Condition: Fair Instructions (If sedation given, give patient instructions): Insomnia (ED) Prescriptions: LORazepam [Ativan] 1 mg PO DAILY PRN 4 Days #4 tab PRN Reason: Anxiety Referrals: Max Brown MD [Primary Care Provider] - 1-2 days
[2021-06-27 16:25] VITALS: BP 152/107; PULSE 86; RESP 18
[2021-06-27 16:29] LABS: Appearance,Urine Clear (Clear); Bilirubin,Urine Negative (Negative); Blood,Urine Negative (Negative); Color,Urine Light Yellow; Glucose,Urine (UA) Negative (Negative); Ketones,Urine Negative (Negative); Leukocyte Esterase,Urine Negative (Negative); Nitrite,Urine Negative (Negative); PH, Urine 5.5 (5.0-8.0); Protein,Urine Negative (Negative); Specific Gravity,Urine 1.009 (1.001-1.035); Urobilinogen,Urine <2.0 mg/dL (<2.0)
== END 2021-06-27 16:24 | disposition home or self-care (01) ==
LOC: EC 13:07
DX: Z04.6 Encounter for general psychiatric examination, requested by authority (principal); G47.00 Insomnia, unspecified; I10 Essential (primary) hypertension; Z79.899 Other long term (current) drug therapy
CPT/HCPCS: 81003; 99283

== ENCOUNTER 2022-10-22 11:40 | Emergency (ER) | payer MEDICARE, OTHER ==
[2022-10-22 12:14] VITALS: BP 137/81; PULSE 100; RESP 16; TEMP 97.9
--- NOTE | 2022-10-22 12:42 | ED ---
General Adult HPI - General Chief complaint: ENT Stated complaint: Sore throat, covid test Time Seen by Provider: 10/22/22 12:15 Source: patient, RN notes reviewed, old records reviewed Mode of arrival: ambulatory Limitations: no limitations - History of Present Illness Initial comments: This is a 52-year-old well-appearing male who presents ambulatory with complaints of sore throat congestion and occasional cough since Tuesday. States did take a home test yesterday and is positive Covid. States takes Motrin and Percocet for chronic pain. Denies any fevers. No nausea vomiting or diarrhea. Patient states he needs a hospital test showing he is positive as he lives with others. -: days(s) (5) Radiation: non-radiation Severity scale (1-10): 1 Quality: other (sore throat) Associated Symptoms: cough, other (congestion) Treatments Prior to Arrival: NSAID, other (Percocet) - Related Data Home Medications Medication Instructions Recorded Confirmed Omeprazole 20 mg PO BID PRN 01/23/17 06/27/21 lisinopriL [Zestril] 20 mg PO DAILY 01/23/17 06/27/21 Ibuprofen [Motrin] 800 mg PO TID PRN 06/27/21 06/27/21 LORazepam [Ativan] 1 mg PO HS 06/27/21 06/27/21 QUEtiapine [SEROquel] 50 mg PO HS 06/27/21 06/27/21 Trospium Chloride 20 mg PO BID 06/27/21 06/27/21 oxyCODONE-APAP 10-325MG [Percocet 1 tab PO TID PRN 06/27/21 06/27/21 10-325 mg] Previous Rx's Medication Instructions Recorded LORazepam [Ativan] 1 mg PO DAILY PRN 4 Days #4 tab 06/27/21 Allergies Allergy/AdvReac Type Severity Reaction Status Date / Time No Known Allergies Allergy Verified 06/27/21 15:47 Review of Systems ROS Statement: Those systems with pertinent positive or pertinent negative responses have been documented in the HPI. ROS Other: All systems not noted in ROS Statement are negative. Past Medical History Past Medical History: Hypertension Additional Past Medical History / Comment(s): urinary frequency , chronic pain History of Any Multi-Drug Resistant Organisms: None Reported Past Surgical History: No Surgical Hx Reported Past Psychological History: Anxiety, Depression Smoking Status: Never smoker Past Alcohol Use History: None Reported Past Drug Use History: None Reported General Exam Limitations: no limitations General appearance: alert, in no apparent distress Head exam: Present: atraumatic, normocephalic Eye exam: Present: normal appearance. Absent: scleral icterus, conjunctival injection, periorbital swelling ENT exam: Present: normal oropharynx, mucous membranes moist Expanded Mouth exam: Present: tongue normal, tongue elevation. Absent: drooling, trismus, muffled voice Throat exam: negative: tonsillar erythema, tonsillar exudate, R peritonsillar mass, L peritonsillar mass Neck exam: Present: full ROM. Absent: tenderness, meningismus, lymphadenopathy Respiratory exam: Present: normal lung sounds bilaterally. Absent: respiratory distress, accessory muscle use Cardiovascular Exam: Present: regular rate GI/Abdominal exam: Present: soft. Absent: distended, rigid Neurological exam: Present: alert, oriented X3, normal gait Psychiatric exam: Present: normal affect, normal mood Skin exam: Present: warm, dry, normal color. Absent: cyanosis, diaphoretic, petechiae, pallor Course Vital Signs 10/22/22 12:11 Temperature 97.9 F Pulse Rate 100 Respiratory 16 Rate Blood Pressure 137/81 O2 Sat by Pulse 98 Oximetry Medical Decision Making - Medical Decision Making Patient presents with a positive home test for coronavirus. Symptoms started on Tuesday, he has been vaccinated. Denies any fevers, nausea vomiting or diarrhea. No difficulty in breathing. States he takes Percocet and Motrin daily for chronic pain. He is requesting a hospital test to show proof that he is positive. Patient is afebrile , oxygen saturation 98% on room air. No respiratory distress, lung sounds are clear. Patient did test positive for comparison emergency room. Strict return parameters discussed. He was encouraged to take vitamin C, vitamin D and zinc daily to improve immune health. Increase his fluid intake to prevent dehydration. Follow-up with his primary care doctor as needed. Return to the emergency room with any new or concerning symptoms. He is agreeable to this plan of care. Case discussed with Dr. Blackwell. - Lab Data Lab Results 10/22/22 Range/Units 12:51 Coronavirus (PCR) Detected A (Not Detectd) Disposition Clinical Impression: COVID-19 Disposition: HOME SELF-CARE Condition: Good Instructions (If sedation given, give patient instructions): COVID-19 (Coronavirus Disease 2019) (ED) Additional Instructions: Take vitamin C, vitamin D and zinc daily to improve immune health. Increase your fluid intake to prevent dehydration. Return if any new or concerning symptoms. Is patient prescribed a controlled substance at d/c from ED?: No Referrals: Lee Jackson MD [Primary Care Provider] - 1-2 days Time of Disposition: 13:26
== END 2022-10-22 13:46 | disposition home or self-care (01) ==
LOC: EC 11:40
DX: U07.1 COVID-19 (principal); I10 Essential (primary) hypertension; F41.9 Anxiety disorder, unspecified; F32.A Depression, unspecified; Z79.899 Other long term (current) drug therapy
CPT/HCPCS: 87635; 99283

== ENCOUNTER 2023-06-10 18:21 | Emergency (ER) | payer MEDICARE, OTHER ==
[2023-06-10 18:25] VITALS: TEMP 98
[2023-06-10] MEDS ORDERED: DEXAMETHASONE SOD PHOSPHATE 10 MG/ML 1 ML VIAL IM STA (19:51)
[2023-06-10] MEDS ORDERED: MECLIZINE 12.5 MG TAB PO STA (19:51)
[2023-06-10] MEDS ORDERED: OXYMETAZOLINE 0.05% NASL SPRAY 1 SPRAY BOTTLE NASAL STA (20:24)
--- NOTE | 2023-06-10 20:27 | ED ---
Dizziness HPI - General Chief Complaint: Dizziness Stated Complaint: Ear Infection, Dizziness Time Seen by Provider: 06/10/23 19:27 Source: patient, RN notes reviewed Mode of arrival: ambulatory Limitations: no limitations - History of Present Illness Initial Comments: This is a 53-year-old male who presents to the emergency department for dizziness. States that he has a history of vertigo and this feels the same. He last had vertigo around 4 years ago and states that this was triggered by an ear infection. He does not currently have pain, but states that his ears do feel clogged. He has Flonase nasal spray that he uses once daily. Otherwise is not taking any antihistamines or other medications. States that when he bent down to change his cat litter he started to feel a room spinning sensation, and he is getting this sensation with movement and positional changes. Sitting still he feels asymptomatic. Denies any fevers, chills, sore throat, cough, dyspnea, chest pain, palpitations, abdominal pain, nausea, vomiting, diarrhea, back pain, or headaches. MD Complaint: dizziness - Related Data Home Medications Medication Instructions Recorded Confirmed Omeprazole 20 mg PO BID PRN 01/23/17 06/27/21 lisinopriL [Zestril] 20 mg PO DAILY 01/23/17 06/27/21 Ibuprofen [Motrin] 800 mg PO TID PRN 06/27/21 06/27/21 LORazepam [Ativan] 1 mg PO HS 06/27/21 06/27/21 QUEtiapine [SEROquel] 50 mg PO HS 06/27/21 06/27/21 Trospium Chloride 20 mg PO BID 06/27/21 06/27/21 oxyCODONE-APAP 10-325MG [Percocet 1 tab PO TID PRN 06/27/21 06/27/21 10-325 mg] Previous Rx's Medication Instructions Recorded LORazepam [Ativan] 1 mg PO DAILY PRN 4 Days #4 tab 06/27/21 Meclizine [Antivert] 25 mg PO QID PRN #30 tab 06/10/23 Allergies Allergy/AdvReac Type Severity Reaction Status Date / Time No Known Allergies Allergy Verified 06/10/23 18:25 Review of Systems ROS Statement: Those systems with pertinent positive or pertinent negative responses have been documented in the HPI. ROS Other: All systems not noted in ROS Statement are negative. Past Medical History Past Medical History: Hypertension Additional Past Medical History / Comment(s): urinary frequency , chronic pain, Vertigo History of Any Multi-Drug Resistant Organisms: None Reported Past Surgical History: No Surgical Hx Reported Past Psychological History: Anxiety, Depression Smoking Status: Never smoker Past Alcohol Use History: None Reported Past Drug Use History: None Reported General Exam Limitations: no limitations General appearance: alert, in no apparent distress Head exam: Present: atraumatic, normocephalic, normal inspection Eye exam: Present: normal appearance, PERRL, EOMI. Absent: scleral icterus, conjunctival injection, periorbital swelling ENT exam: Present: other (Fluid behind the bilateral TMs. No canal erythema.) Respiratory exam: Present: normal lung sounds bilaterally. Absent: respiratory distress, wheezes, rales, rhonchi, stridor Cardiovascular Exam: Present: regular rate, normal rhythm, normal heart sounds. Absent: systolic murmur, diastolic murmur, rubs, gallop, clicks Neurological exam: Present: alert, oriented X3, CN II-XII intact, other (Negative HINTS exam) Psychiatric exam: Present: normal affect, normal mood Skin exam: Present: warm, dry, intact, normal color. Absent: rash Course Vital Signs 06/10/23 06/10/23 18:23 21:24 Temperature 98 F Pulse Rate 122 H 96 Respiratory 22 16 Rate Blood Pressure 122/78 109/72 O2 Sat by Pulse 99 100 Oximetry Medical Decision Making - Medical Decision Making This is a 53-year-old male who presents to the emergency department for dizziness. Was pt. sent in by a medical professional or institution? @ -No Did you speak to anyone other than the patient for history? @ -No Did you review nursing and triage notes? @ -Yes, and I agree, it is accurate with regards to the patient's symptoms. Were old charts reviewed? @ -No Differential Diagnosis? @ -Differential Dizziness: Benign paroxysmal positional Vertigo, Menieres disease, otitis media, acoustic neuroma, vertebrobasilar insufficiency, cerebellar stroke, encephalitis, hypovolemic, arrhythmia, coronary artery syndrome, anemia, this is not meant to be an all-inclusive list EKG interpreted by me (3pts min.)? @ -Not obtained X-rays interpreted by me (1pt min.)? @ -Not obtained CT interpreted by me (1pt min.)? @ -Not obtained U/S interpreted by me (1pt. min.)? @ -Not obtained What testing was considered but not performed? (CT, X-rays, U/S, labs)? Why? @ -None What meds were considered but not given? Why? @ -None Did you discuss the management of the patient with other professionals? @ -No Did you reconcile home meds? @ -No Was smoking cessation discussed for >3mins.? @ -No Was critical care preformed (if so, how long)? @ -No Were there social determinants of health that impacted care today? How? (Homelessness, low income, unemployed, alcoholism, drug addiction, transportation, low edu. Level, literacy, decrease access to med. care, custodial, rehab)? @ -No Was there de-escalation of care discussed even if they declined? (Discuss DNR or withdrawal of care, Hospice)? @ -No What co-morbidities impacted this encounter? (DM, HTN, Smoking, COPD, CAD, Cancer, CVA, Hep., AIDS, mental health diagnosis, sleep apnea, morbid obesity)? @ -None Was patient admitted / discharged? @ -Discharged. Patient was very adamant that this feels like a vertigo attack for him and declines the need for any additional workup. He was given a dose of Antivert, as well as IM Decadron and oxymetazoline nasal spray. He was able to bend down and move around without any dizziness recurring, and felt stable for discharge home. Prescription for Antivert provided with dosing instructions reviewed. Advised to increase the use of his Flonase nasal spray to twice daily for the next week and to use the oxymetazoline nasal spray for the next 3 days to help with additional congestion. Also recommended he look up the half somersault maneuver by Dr. Terri Ramirez on YouTube for additional treatment options. Undiagnosed new problem with uncertain prognosis? @ -None Drug Therapy requiring intensive monitoring for toxicity (Heparin, Nitro, Insulin, Cardizem)? @ -None Were any procedures done? @ -None Diagnosis/symptom? @ -BPPV Acute, or Chronic, or Acute on Chronic? @ -Acute Uncomplicated (without systemic symptoms) or Complicated (systemic symptoms)? @ -Uncomplicated Side effects of treatment? @ -None Exacerbation, Progression, or Severe Exacerbation] @ -Not applicable Poses a threat to life or bodily function? @ -No Return precautions reviewed in depth, the patient is instructed to return to the emergency department with any new, worsening, or concerning symptoms. Patient verbalized understanding. This case was discussed in detail with the attending ED physician, Dr. Blanchard. Presentation, findings, and treatment plan discussed in detail as well. Disposition Clinical Impression: Benign paroxysmal positional vertigo Disposition: HOME SELF-CARE Instructions (If sedation given, give patient instructions): Vertigo (ED), Benign Paroxysmal Positional Vertigo (ED) Additional Instructions: Return to the emergency department with any new, worsening, or concerning symptoms. Use the decongestant nasal spray provided 2-3 times daily for the next 3 days. You can take the Antivert up to 4 times daily as needed for vertigo symptoms. You should also look up the half somersault maneuver by Dr. Terri Ramirez on YouTube for additional treatment options. Follow up with your primary care provider in 1-2 days. Prescriptions: Meclizine [Antivert] 25 mg PO QID PRN #30 tab PRN Reason: Vertigo Is patient prescribed a controlled substance at d/c from ED?: No Referrals: Lee Jackson MD [Primary Care Provider] - 1-2 days
[2023-06-10 21:25] VITALS: BP 109/72; PULSE 96; RESP 16
== END 2023-06-10 21:25 | disposition home or self-care (01) ==
LOC: EC 18:21
DX: H81.10 Benign paroxysmal vertigo, unspecified ear (principal); I10 Essential (primary) hypertension; F41.9 Anxiety disorder, unspecified; F32.A Depression, unspecified; Z79.899 Other long term (current) drug therapy
CPT/HCPCS: 99283; 96372; J1100

== ENCOUNTER 2023-07-03 09:53 | Inpatient (IN) | payer MEDICARE, OTHER ==
[2023-07-03] MEDS ORDERED: SODIUM CHLORIDE 0.9% 500 ML 500 ML IV STA (10:48)
[2023-07-03] MEDS ORDERED: SODIUM CHLORIDE 0.9% 1,000 ML IV STA (10:48)
--- NOTE | 2023-07-03 10:55 | ED ---
Abdominal Pain HPI - General Chief Complaint: Abdominal Pain Stated Complaint: Abd pain Time Seen by Provider: 07/03/23 10:36 Source: patient, RN notes reviewed Mode of arrival: ambulatory Limitations: no limitations - History of Present Illness Initial Comments: 53-year-old male presents emergency Department with chief complaint abdominal pain, constipation. Patient states that he is on current narcotic pain meds. Patient states that he's been having diffuse abdominal bloating, difficulty passing bowel movement. Patient states that he is tried laxatives, suppositories with no relief. He states he has a hemorrhoid that he feels is blocking the way. Patient states when he wipes occasionally has blood associate with this hemorrhoid. Denies any prior abdominal surgeries. Denies fevers or chills he denies any dysuria. - Related Data Home Medications Medication Instructions Recorded Confirmed Omeprazole 20 mg PO BID PRN 01/23/17 06/27/21 lisinopriL [Zestril] 20 mg PO DAILY 01/23/17 06/27/21 Ibuprofen [Motrin] 800 mg PO TID PRN 06/27/21 06/27/21 LORazepam [Ativan] 1 mg PO HS 06/27/21 06/27/21 QUEtiapine [SEROquel] 50 mg PO HS 06/27/21 06/27/21 Trospium Chloride 20 mg PO BID 06/27/21 06/27/21 oxyCODONE-APAP 10-325MG [Percocet 1 tab PO TID PRN 06/27/21 06/27/21 10-325 mg] Previous Rx's Medication Instructions Recorded LORazepam [Ativan] 1 mg PO DAILY PRN 4 Days #4 tab 06/27/21 Meclizine [Antivert] 25 mg PO QID PRN #30 tab 06/10/23 Allergies Allergy/AdvReac Type Severity Reaction Status Date / Time No Known Allergies Allergy Verified 07/03/23 10:07 Review of Systems ROS Statement: Those systems with pertinent positive or pertinent negative responses have been documented in the HPI. ROS Other: All systems not noted in ROS Statement are negative. Past Medical History Past Medical History: Hypertension Additional Past Medical History / Comment(s): urinary frequency , chronic pain, Vertigo History of Any Multi-Drug Resistant Organisms: None Reported Past Surgical History: No Surgical Hx Reported Past Psychological History: Anxiety, Depression Smoking Status: Never smoker Past Alcohol Use History: None Reported Past Drug Use History: None Reported General Exam Limitations: no limitations General appearance: alert, in no apparent distress Head exam: Present: atraumatic, normocephalic, normal inspection Eye exam: Present: normal appearance, PERRL, EOMI. Absent: scleral icterus, conjunctival injection, periorbital swelling ENT exam: Present: normal exam, mucous membranes moist Neck exam: Present: normal inspection, full ROM. Absent: tenderness, meningismus, lymphadenopathy Respiratory exam: Present: normal lung sounds bilaterally. Absent: respiratory distress, wheezes, rales, rhonchi, stridor Cardiovascular Exam: Present: regular rate, normal rhythm, normal heart sounds. Absent: systolic murmur, diastolic murmur, rubs, gallop, clicks GI/Abdominal exam: Present: soft, distended, tenderness, normal bowel sounds. Absent: guarding, rebound, rigid Back exam: Absent: CVA tenderness (R), CVA tenderness (L) Course Vital Signs 07/03/23 07/03/23 10:04 12:58 Temperature 98 F Pulse Rate 100 106 H Respiratory 18 18 Rate Blood Pressure 87/57 134/75 O2 Sat by Pulse 98 99 Oximetry Medical Decision Making - Medical Decision Making Was pt. sent in by a medical professional or institution (SHAQ Samaniego, TRACTOR MECHANIC APPRENTICE, urgent care, hospital, or halfway...) When possible be specific @ -No Did you speak to anyone other than the patient for history (EMS, parent, family, police, friend...)? What history was obtained from this source @ -No Did you review nursing and triage notes (agree or disagree)? Why? @ -I reviewed and agree with nursing and triage notes Were old charts reviewed (outside hosp., previous admission, EMS record, old EKG, old radiological studies, urgent care reports/EKG's, halfway records)? Report findings @ -Reviewed prior laboratory studies including CMP Differential Diagnosis (chest pain, altered mental status, abdominal pain women, abdominal pain men, vaginal bleeding, weakness, fever, dyspnea, syncope, headache, dizziness, GI bleed, back pain, seizure, CVA, palpatations, mental health, musculoskeletal)? @ -Differential Abdominal Pain Men: Appendicitis, cholecystitis, diverticulosis, ischemic bowel, pancreatitis, hepatitis, UTI, gastroenteritis, AAA, incarcerated hernia, bowel obstruction, constipation, inflammatory bowel, hepatitis, peptic ulcer disease, splenic infarction, perforated viscus, testicular torsion, this is not meant to be an all-inclusive list EKG interpreted by me (3pts min.). @ -None X-rays interpreted by me (1pt min.). @ -X-ray shows moderate constipation CT interpreted by me (1pt min.). @ -None done U/S interpreted by me (1pt. min.). @ -None done What testing was considered but not performed or refused? (CT, X-rays, U/S, labs)? Why? @ -None What meds were considered but not given or refused? Why? @ -None Did you discuss the management of the patient with other professionals (professionals i.e. , PA, TRACTOR MECHANIC APPRENTICE, lab, RT, psych nurse, director social welfare, shingle inspector, teacher, environmental compliance officer, case management manager)? Give summary @ -Dr. Valencia for admission given the patient's evidence acute kidney injury with intermittent retention and constipation patiently admitt with consult to nephrology Was smoking cessation discussed for >3mins.? @ -No Was critical care preformed (if so, how long)? @ -No Were there social determinants of health that impacted care today? How? (Homelessness, low income, unemployed, alcoholism, drug addiction, trans portation, low edu. Level, literacy, decrease access to med. care, senior living, rehab)? @ -No Was there de-escalation of care discussed even if they declined (Discuss DNR or withdrawal of care, Hospice)? DNR status @ -No What co-morbidities impacted this encounter? (DM, HTN, Smoking, COPD, CAD, Cancer, CVA, ARF, Chemo, Hep., AIDS, mental health diagnosis, sleep apnea, morbid obesity)? @ -None Was patient admitted / discharged? Hospital course, mention meds given and route, prescriptions, significant lab abnormalities, going to OR and other pertinent info. @ -Admitted patient has acute kidney injury, acute renal failure all started on maintenance fluids, patient of urinary retention Melgar catheter was placed this may be caused the patient's acute kidney injury I and O will be monitored. Undiagnosed new problem with uncertain prognosis? @ -No Drug Therapy requiring intensive monitoring for toxicity (Heparin, Nitro, Insulin, Cardizem)? @ -No Were any procedures done? @ -No Diagnosis/symptom? @ -Acute kidney injury, constipation, urinary retention Acute, or Chronic, or Acute on Chronic? @ -Acute Uncomplicated (without systemic symptoms) or Complicated (systemic symptoms)? @ -complicated Side effects of treatment? @ -No Exacerbation, Progression, or Severe Exacerbation? @ -No Poses a threat to life or bodily function? How? (Chest pain, [place], [place], pneumonia, PE, COPD, DKA, ARF, appy, cholecystitis, CVA, Diverticulitis, Homicidal, Suic idal, threat to staff... and all critical care pts) @ -No - Lab Data Result diagrams: 07/03/23 11:19 07/03/23 11:19 Lab Results 07/03/23 07/03/23 07/03/23 Range/Units 11:19 11:19 11:19 WBC 7.0 (3.8-10.6) k/uL RBC 4.19 L (4.30-5.90) m/uL Hgb 12.4 L (13.0-17.5) gm/dL Hct 35.7 L (39.0-53.0) % MCV 85.3 (80.0-100.0) fL MCH 29.5 (25.0-35.0) pg MCHC 34.6 (31.0-37.0) g/dL RDW 13.4 (11.5-15.5) % Plt Count 198 (150-450) k/uL MPV 8.0 Neutrophils % 80 % Lymphocytes % 8 % Monocytes % 8 % Eosinophils % 3 % Basophils % 0 % Neutrophils # 5.6 (1.3-7.7) k/uL Lymphocytes # 0.5 L (1.0-4.8) k/uL Monocytes # 0.6 (0-1.0) k/uL Eosinophils # 0.2 (0-0.7) k/uL Basophils # 0.0 (0-0.2) k/uL Sodium 135 L (137-145) mmol/L Potassium 4.6 (3.5-5.1) mmol/L Chloride 105 (98-107) mmol/L Carbon Dioxide 16 L (22-30) mmol/L Anion Gap 14 mmol/L BUN 34 H (9-20) mg/dL Creatinine 3.43 H (0.66-1.25) mg/dL Est GFR (CKD-EPI)AfAm 22 (>60 ml/min/1.73 sqM) Est GFR (CKD-EPI)NonAf 19 (>60 ml/min/1.73 sqM) Glucose 109 H (74-99) mg/dL Plasma Lactic Acid Hakeem 0.8 (0.7-2.0) mmol/L Calcium 8.8 (8.4-10.2) mg/dL Total Bilirubin 0.3 (0.2-1.3) mg/dL AST 18 (17-59) U/L ALT 14 (4-49) U/L Alkaline Phosphatase 60 (38-126) U/L Total Protein 6.1 L (6.3-8.2) g/dL Albumin 3.6 (3.5-5.0) g/dL Lipase 30 (23-300) U/L Urine Color Urine Appearance (Clear) Urine pH (5.0-8.0) Ur Specific [place] (1.001-1.035) Urine Protein (Negative) Urine Glucose (UA) (Negative) Urine Ketones (Negative) Urine Blood (Negative) Urine Nitrite (Negative) Urine Bilirubin (Negative) Urine Urobilinogen (<2.0) mg/dL Ur Leukocyte Esterase (Negative) Urine RBC (0-5) /hpf Urine WBC (0-5) /hpf Cellular Casts (0) /lpf Hyaline Casts (0-2) /lpf Urine Mucus (None) /hpf 07/03/23 Range/Units 12:36 WBC (3.8-10.6) k/uL RBC (4.30-5.90) m/uL Hgb (13.0-17.5) gm/dL Hct (39.0-53.0) % MCV (80.0-100.0) fL MCH (25.0-35.0) pg MCHC (31.0-37.0) g/dL RDW (11.5-15.5) % Plt Count (150-450) k/uL MPV Neutrophils % % Lymphocytes % % Monocytes % % Eosinophils % % Basophils % % Neutrophils # (1.3-7.7) k/uL Lymphocytes # (1.0-4.8) k/uL Monocytes # (0-1.0) k/uL Eosinophils # (0-0.7) k/uL Basophils # (0-0.2) k/uL Sodium (137-145) mmol/L Potassium (3.5-5.1) mmol/L Chloride (98-107) mmol/L Carbon Dioxide (22-30) mmol/L Anion Gap mmol/L BUN (9-20) mg/dL Creatinine (0.66-1.25) mg/dL Est GFR (CKD-EPI)AfAm (>60 ml/min/1.73 sqM) Est GFR (CKD-EPI)NonAf (>60 ml/min/1.73 sqM) Glucose (74-99) mg/dL Plasma Lactic Acid Hake[place] (0.7-2.0) mmol/L Calcium (8.4-10.2) mg/dL Total Bilirubin (0.2-1.3) mg/dL AST (17-59) U/L ALT (4-49) U/L Alkaline Phosphatase (38-126) U/L Total Protein (6.3-8.2) g/dL Albumin (3.5-5.0) g/dL Lipase (23-300) U/L Urine Color Yellow Urine Appearance Cloudy (Clear) Urine pH 5.5 (5.0-8.0) Ur Specific [place] 1.015 (1.001-1.035) Urine Protein Trace H (Negative) Urine Glucose (UA) Negative (Negative) Urine Ketones Negative (Negative) Urine Blood Negative (Negative) Urine Nitrite Negative (Negative) Urine Bilirubin Negative (Negative) Urine Urobilinogen <2.0 (<2.0) mg/dL Ur Leukocyte Esterase Negative (Negative) Urine RBC 1 (0-5) /hpf Urine WBC 14 H (0-5) /hpf Cellular Casts 7 (0) /lpf Hyaline Casts 1 (0-2) /lpf Urine Mucus Rare H (None) /hpf Disposition Clinical Impression: Acute kidney injury, Urinary retention, Constipation, Metabolic acidosis Disposition: ADMITTED IP TO THIS [facility] Condition: Poor Time of Disposition: 12:54
--- NOTE | 2023-07-03 11:09 | XR ---
EXAMINATION TYPE: XR KUB DATE OF EXAM: 07/03/2023 COMPARISON: NONE HISTORY: Abdominal pain TECHNIQUE: Upright KUB image of the abdomen is obtained FINDINGS: Small bowel demonstrates no evidence for dilatation or air fluid levels. Large amount of stool is present within the colon. No convincing evidence for pneumoperitoneum. No unusual calcifications. The lung bases are clear. Elevation the right hemidiaphragm. The osseous structures are intact. Degenerative changes of the lumbar spine. IMPRESSION: Large colonic stool burden consistent with reported history of constipation.
[2023-07-03 11:28] LABS: Basophils % (A) 0 %; Eosinophils # (A) 0.2 k/uL (0-0.7); Eosinophils % (A) 3 %; HCT 35.7 % (39.0-53.0); HGB 12.4 gm/dL (13.0-17.5); Lymphocytes # (A) 0.5 k/uL (1.0-4.8); Lymphocytes % (A) 8 %; MCH 29.5 pg (25.0-35.0); MCHC 34.6 g/dL (31.0-37.0); MCV 85.3 fL (80.0-100.0); Monocytes # (A) 0.6 k/uL (0-1.0); Monocytes % (A) 8 %; Neutrophils # (A) 5.6 k/uL (1.3-7.7); Neutrophils % (A) 80 %; Platelet Count 198 k/uL (150-450); RBC 4.19 m/uL (4.30-5.90); RDW 13.4 % (11.5-15.5)
[2023-07-03 12:11] LABS: ALT 14 U/L (4-49); AST 18 U/L (17-59); African American GFR (CKD) 22 (>60 ml/min/1.73 sqM); Albumin 3.6 g/dL (3.5-5.0); Alkaline Phosphatase 60 U/L (38-126); Anion Gap 14 mmol/L; Blood Urea Nitrogen 34 mg/dL (9-20); Calcium 8.8 mg/dL (8.4-10.2); Carbon Dioxide 16 mmol/L (22-30); Chloride 105 mmol/L (98-107); Glucose 109 mg/dL (74-99); Lipase 30 U/L (23-300); Non-African American GFR(CKD) 19 (>60 ml/min/1.73 sqM); Potassium 4.6 mmol/L (3.5-5.1); Sodium 135 mmol/L (137-145); Total Bilirubin 0.3 mg/dL (0.2-1.3); Total Protein 6.1 g/dL (6.3-8.2)
[2023-07-03] MEDS ORDERED: NALOXONE 0.4 MG/ML 1 ML VIAL IV PRN (12:54)
[2023-07-03 12:57] LABS: Appearance,Urine Cloudy (Clear); Bilirubin,Urine Negative (Negative); Blood,Urine Negative (Negative); Cellular Casts,Urine 7 /lpf (0); Color,Urine Yellow; Glucose,Urine (UA) Negative (Negative); Hyaline Casts,Urine 1 /lpf (0-2); Ketones,Urine Negative (Negative); Leukocyte Esterase,Urine Negative (Negative); Mucus,Urine Rare /hpf; Nitrite,Urine Negative (Negative); PH, Urine 5.5 (5.0-8.0); Protein,Urine Trace (Negative); RBC,Urine 1 /hpf (0-5); Specific Gravity,Urine 1.015 (1.001-1.035); Urobilinogen,Urine <2.0 mg/dL (<2.0); WBC,Urine 14 /hpf (0-5)
[2023-07-03] MEDS ORDERED: BENZOCAINE 20% HEMORRHOIDAL OINT 28GM RECTAL PRN (13:40)
--- NOTE | 2023-07-03 13:47 | P.HPIM ---
History of Present Illness H&P Date: 07/03/23 History of present illness; patient is a 53-year-old gentleman with past medical history significant for depression, hypertension who presented to the ER because of abdominal bloating and constipation. Patient states that he is on pain medication at home and has been noticing that he is not able to have regular bowel movements for the last few days. Patient also thinks that he has hemorrhoids and is very painful for him to defecate. Denies any nausea or vomiting. Patient also complaining of decreased appetite. Patient had never had colonoscopy in the past. Had tried [id number] laxatives but it did not work. Patient last bowel movement was 3 days ago. Because of abdominal pain and bloating he came to the ER Initial lab work done in the ER showed WBC 7, hemoglobin 12.4, platelet count 198, sodium 135, potassium 4.6, BUN 34, creatinine 3.43, glucose 109, total protein 6.1 UA negative for blood, negative for urine nitrites, and negative for leukocyte esterase. Patient admitted to medicine service REVIEW OF SYSTEMS: CONSTITUTIONAL: No fever, no malaise, no fatigue. HEENT: No recent visual problems or hearing problems. Denied any sore throat. CARDIOVASCULAR: No chest pain, orthopnea, PND, no palpitations, no syncope. PULMONARY: No shortness of breath, no cough, no hemoptysis. GASTROINTESTINAL: As mentioned in HPI NEUROLOGICAL: No headaches, no weakness, no numbness. HEMATOLOGICAL: Denies any bleeding or petechiae. GENITOURINARY: Denies any burning micturition, frequency, or urgency. MUSCULOSKELETAL/RHEUMATOLOGICAL: Denies any joint pain, swelling, or any muscle pain. ENDOCRINE: Denies any polyuria or polydipsia. The rest of the 14-point review of systems is negative. PHYSICAL EXAMINATION: GENERAL: The patient is alert and oriented x3, not in any acute distress. Well developed, well nourished. HEENT: Pupils are round and equally reacting to light. EOMI. No scleral icterus. No conjunctival pallor. Normocephalic, atraumatic. No pharyngeal erythema. No thyromegaly. CARDIOVASCULAR: S1 and S2 present. No murmurs, rubs, or gallops. PULMONARY: Chest is clear to auscultation, no wheezing or crackles. ABDOMEN: Soft, nontender, nondistended, normoactive bowel sounds. No palpable organomegaly. MUSCULOSKELETAL: No joint swelling or deformity. EXTREMITIES: No cyanosis, clubbing, or pedal edema. NEUROLOGICAL: Gross neurological examination did not reveal any focal deficits. SKIN: No rashes. Assessment and plan Acute kidney injury Constipation Hypertension Depression Monitor vital signs Monitor CBC Monitor CMP Strict I's and O's, daily weights Avoid nephrotoxic agents Hold lisinopril for now Continue IV fluids Ordered ultrasound of kidneys Ordered preparation H for hemorrhoids Aggressive bowel regimen Consult surgery Consult nephrology Labs and medication were reviewed.. Continue same treatment. Continue with symptomatic treatment. Resume home medication. Monitor labs and vitals. DVT and GI prophylaxis. Further recommendations as per clinical course of the patient Dictation was produced using [employer] dictation software. please excuse any grammatical, word or spelling errors. Past Medical History Past Medical History: Hypertension Additional Past Medical History / Comment(s): urinary frequency , chronic pain, Vertigo History of Any Multi-Drug Resistant Organisms: None Reported Past Surgical History: No Surgical Hx Reported Past Psychological History: Anxiety, Depression Smoking Status: Never smoker Past Alcohol Use History: None Reported Past Drug Use History: None Reported Medications and Allergies Home Medications Medication Instructions Recorded Confirmed Type Omeprazole 20 mg PO BID 01/23/17 07/03/23 History Ibuprofen [Motrin] 800 mg PO Q8H PRN 06/27/21 07/03/23 History oxyCODONE-APAP 10-325MG [Percocet 1 tab PO TID PRN 06/27/21 07/03/23 History 10-325 mg] Ergocalciferol [Vitamin D2 (1250 1,250 mcg PO Q30D 07/03/23 07/03/23 History Mcg = 44921 Iu)] LORazepam [Ativan] 2 mg PO HS 07/03/23 07/03/23 History QUEtiapine FUMARATE [SEROquel] 300 mg PO HS 07/03/23 07/03/23 History atenoloL [Tenormin] 25 mg PO HS 07/03/23 07/03/23 History lisinopriL 40 mg PO DAILY 07/03/23 07/03/23 History Allergies Allergy/AdvReac Type Severity Reaction Status Date / Time No Known Allergies Allergy Verified 07/03/23 13:21 Physical Exam Vitals: Vital Signs Temp Pulse Resp BP Pulse Ox 07/03/23 12:58 106 H 18 134/75 99 07/03/23 10:04 98 F 100 18 87/57 98 Intake and Output 07/02/23 07/03/23 07/03/23 22:59 06:59 14:59 Other: Weight 83.461 kg Results CBC & Chem 7: 07/03/23 11:19 07/03/23 11:19 Labs: Abnormal Lab Results - Last 24 Hours (Table) 07/03/23 07/03/23 07/03/23 Range/Units 11:19 11:19 12:36 RBC 4.19 L (4.30-5.90) m/uL Hgb 12.4 L (13.0-17.5) gm/dL Hct 35.7 L (39.0-53.0) % Lymphocytes # 0.5 L (1.0-4.8) k/uL Sodium 135 L (137-145) mmol/L Carbon Dioxide 16 L (22-30) mmol/L BUN 34 H (9-20) mg/dL Creatinine 3.43 H (0.66-1.25) mg/dL Glucose 109 H (74-99) mg/dL Total Protein 6.1 L (6.3-8.2) g/dL Urine Protein Trace H (Negative) Urine WBC 14 H (0-5) /hpf Urine Mucus Rare H (None) /hpf
--- NOTE | 2023-07-03 15:18 | US ---
EXAMINATION TYPE: US kidneys/renal and bladder DATE OF EXAM: 07/03/2023 COMPARISON: NONE CLINICAL INDICATION: Male, 53 years old with history of Chavo; CHAVO EXAM MEASUREMENTS: Right Kidney: 8.9 x 5.0 x 3.8 cm Left Kidney: 10 x 4.9 x 4.5 cm Right Kidney: No hydronephrosis or masses seen Left Kidney: No hydronephrosis or masses seen Bladder: Not well visualized patient has catheter in. No obstructive uropathy. Cortical medullary differentiation is maintained. IMPRESSION: No obstructive uropathy. Cortical medullary differentiation is maintained.
[2023-07-03] MEDS: oxyCODONE-APAP 10-325MG 1 EACH TAB PO PRN ×2 (15:38→23:31)
[2023-07-03] MEDS: SODIUM CHLORIDE 0.9% 1,000 ML IV SCH (15:39)
[2023-07-03] MEDS: PANTOPRAZOLE 40 MG TABLET PO SCH (17:46)
[2023-07-03] MEDS: LORazepam 1 MG TAB PO SCH (21:26)
[2023-07-03] MEDS: atenoloL 25 MG TAB PO SCH (21:26)
[2023-07-03] MEDS: polyethylene glycoL 3350 17 GM POWD.PACK PO SCH (21:26)
[2023-07-03] MEDS: QUEtiapine 100 MG TAB PO SCH (21:47)
[2023-07-04] MEDS: SODIUM CHLORIDE 0.9% 1,000 ML IV SCH ×2 (03:13→16:55)
[2023-07-04] MEDS: PANTOPRAZOLE 40 MG TABLET PO SCH ×2 (07:42→15:42)
[2023-07-04] MEDS: oxyCODONE-APAP 10-325MG 1 EACH TAB PO PRN ×3 (07:51→21:47)
[2023-07-04 08:51] LABS: ALT 13 U/L (10-49); AST 13 U/L (14-35); Albumin 3.6 d/dL (3.8-4.9); Albumin/Globulin Ratio 2.25 Ratio (1.60-3.17); Alkaline Phosphatase 55 U/L (41-126); BUN/Creat Ratio 14.67 Ratio (12.00-20.00); Calcium 8.4 mg/dL (8.7-10.3); Carbon Dioxide 19.3 mmol/L (21.6-31.8); Chloride 113 mmol/L (96-109); Globulin 1.6 d/dL (1.6-3.3); Glucose 99 mg/dL (70-110); Magnesium 2.4 mg/dL (1.5-2.4); Potassium 4.3 mmol/L (3.5-5.5); Sodium 142 mmol/L (135-145); Total Bilirubin <0.2 mg/dL (0.3-1.2); Total Protein 5.2 d/dL (6.2-8.2)
[2023-07-04] MEDS: polyethylene glycoL 3350 17 GM POWD.PACK PO SCH ×2 (09:23→21:48)
--- NOTE | 2023-07-04 11:41 | P.GSCN ---
History of Present Illness Consult date: 07/04/23 History of present illness: CHIEF COMPLAINT: Abdominal pain HISTORY OF PRESENT ILLNESS: This is a 53-year-old male who presented with abdominal pain and constipation. Patient does take narcotics regularly for his neck and back pain. He does take stool softeners for his chronic constipation. Patient was complaining of diffuse abdominal bloating bloating and difficulty having bowel movements. He has a known history of hemorrhoids and does report occasionally having blood noted on the tissue paper when he wipes. Patient is now having bowel movements after laxatives given. He reports improvement in his abdominal pain. He denies any nausea or vomiting. Patient also had evidence of acute kidney injury with urinary retention. Melgar catheter has been in place and kidney function is improving. Patient reports last colonoscopy was several years ago at age 25 for diarrhea. Patient reports that colostomy was reported as normal. He did have a Cologuard test 2 years ago and reported as negative. PAST MEDICAL HISTORY: See below PAST SURGICAL HISTORY: See below MEDICATIONS: See below ALLERGIES: See below SOCIAL HISTORY: No illicit drug use. REVIEW OF SYSTEMS: CONSTITUTIONAL: Denies fever or chills. HEENT: Denies blurred vision, vision changes, or eye pain. Denies hemoptysis CARDIOVASCULAR: Denies chest pain or pressure. RESPIRATORY: No shortness of breath. GASTROINTESTINAL: See HPI for pertinent findings HEMATOLOGIC: Denies bleeding disorders. GENITOURINARY: Denies any blood in urine or increased urinary frequency. SKIN: Denies pruitis. Denies rash. PHYSICAL EXAM: VITAL SIGNS: Reviewed GENERAL: Well-developed in no acute distress. ABDOMEN: Soft. Nondistended. Mildly diffuse tenderness NEUROLOGIC: Alert and oriented. Cranial nerves II through XII grossly intact. LABORATORY DATA: WBC 7 Hgb 12.4 platelets 198 Sodium 142 potassium 4.3 creatinine 3.43 and 1.5 IMAGING: KUB x-ray large colonic stool reported consistent with history of constipation. Kidney ultrasound no obstructive uropathy. Cortical medullary differentiation is maintained ASSESSMENT: 1. Constipation with chronic narcotic use 2. Hemorrhoids with occasional rectal bleeding 3. Urinary retention 4. Acute kidney injury PLAN: -Plan for colonoscopy on , 07/07/[address] Gan -Start clear liquids on Tuesday -Continue MiraLAX -Continue regular diet Physician Paper Tube Grader note has been reviewed by physician. Signing provider agrees with the documented findings, assessment, and plan of care. Past Medical History Past Medical History: Hypertension Additional Past Medical History / Comment(s): urinary frequency , chronic pain, Vertigo History of Any Multi-Drug Resistant Organisms: None Reported Past Surgical History: No Surgical Hx Reported Past Anesthesia/Blood Transfusion Reactions: No Reported Reaction Past Psychological History: Anxiety, Depression Smoking Status: Never smoker Past Alcohol Use History: None Reported Past Drug Use History: None Reported - Past Family History Mother Family Medical History: Cancer Medications and Allergies Home Medications Medication Instructions Recorded Confirmed Type Omeprazole 20 mg PO BID 01/23/17 07/03/23 History Ibuprofen [Motrin] 800 mg PO Q8H PRN 06/27/21 07/03/23 History oxyCODONE-APAP 10-325MG [Percocet 1 tab PO TID PRN 06/27/21 07/03/23 History 10-325 mg] Ergocalciferol [Vitamin D2 (1250 1,250 mcg PO Q30D 07/03/23 07/03/23 History Mcg = 49421 Iu)] LORazepam [Ativan] 2 mg PO HS 07/03/23 07/03/23 History QUEtiapine FUMARATE [SEROquel] 300 mg PO HS 07/03/23 07/03/23 History atenoloL [Tenormin] 25 mg PO HS 07/03/23 07/03/23 History lisinopriL 40 mg PO DAILY 07/03/23 07/03/23 History Allergies Allergy/AdvReac Type Severity Reaction Status Date / Time No Known Allergies Allergy Verified 07/03/23 13:21 Surgical - Exam Vital Signs Temp Pulse Resp BP Pulse Ox 98 F 100 18 87/57 98 07/03/23 10:04 07/03/23 10:04 07/03/23 10:04 07/03/23 10:04 07/03/23 10:04 Results - Labs 07/04/23 05:03 07/04/23 05:03 Abnormal Lab Results - Last 24 Hours (Table) 07/03/23 07/03/23 07/03/23 Range/Units 11:19 11:19 12:36 RBC 4.19 L (4.30-5.90) m/uL Hgb 12.4 L (13.0-17.5) gm/dL Hct 35.7 L (39.0-53.0) % Lymphocytes # 0.5 L (1.0-4.8) k/uL Sodium 135 L (137-145) mmol/L Chloride (96-109) mmol/L Carbon Dioxide 16 L (22-30) mmol/L BUN 34 H (9-20) mg/dL Creatinine 3.43 H (0.66-1.25) mg/dL Est GFR (CKD-EPI) (>=60) Glucose 109 H (74-99) mg/dL Calcium (8.7-10.3) mg/dL Total Bilirubin (0.3-1.2) mg/dL AST (14-35) U/L Total Protein 6.1 L (6.3-8.2) g/dL Albumin (3.8-4.9) d/dL Urine Protein Trace H (Negative) Urine WBC 14 H (0-5) /hpf Urine Mucus Rare H (None) /hpf 07/04/23 Range/Units 05:03 RBC (4.30-5.90) m/uL Hgb (13.0-17.5) gm/dL Hct (39.0-53.0) % Lymphocytes # (1.0-4.8) k/uL Sodium (137-145) mmol/L Chloride 113 H (96-109) mmol/L Carbon Dioxide 19.3 L (22-30) mmol/L BUN (9-20) mg/dL Creatinine (0.66-1.25) mg/dL Est GFR (CKD-EPI) 55 L (>=60) Glucose (74-99) mg/dL Calcium 8.4 L (8.7-10.3) mg/dL Total Bilirubin <0.2 L (0.3-1.2) mg/dL AST 13 L (14-35) U/L Total Protein 5.2 L (6.3-8.2) g/dL Albumin 3.6 L (3.8-4.9) d/dL Urine Protein (Negative) Urine WBC (0-5) /hpf Urine Mucus (None) /hpf Diabetes panel 07/03/23 07/04/23 Range/Units 11:19 05:03 Sodium 135 L 142 (137-145) mmol/L Potassium 4.6 4.3 (3.5-5.1) mmol/L Chloride 105 113 H (98-107) mmol/L Carbon Dioxide 16 L 19.3 L (22-30) mmol/L BUN 34 H 22.0 (9-20) mg/dL Creatinine 3.43 H 1.5 (0.66-1.25) mg/dL Glucose 109 H 99 (74-99) mg/dL Calcium 8.8 8.4 L (8.4-10.2) mg/dL AST 18 13 L (17-59) U/L ALT 14 13 (4-49) U/L Alkaline Phosphatase 60 55 (38-126) U/L Total Protein 6.1 L 5.2 L (6.3-8.2) g/dL Albumin 3.6 3.6 L (3.5-5.0) g/dL Calcium panel 07/03/23 07/04/23 Range/Units 11:19 05:03 Calcium 8.8 8.4 L (8.4-10.2) mg/dL Albumin 3.6 3.6 L (3.5-5.0) g/dL Pituitary panel 07/03/23 07/04/23 Range/Units 11:19 05:03 Sodium 135 L 142 (137-145) mmol/L Potassium 4.6 4.3 (3.5-5.1) mmol/L Chloride 105 113 H (98-107) mmol/L Carbon Dioxide 16 L 19.3 L (22-30) mmol/L BUN 34 H 22.0 (9-20) mg/dL Creatinine 3.43 H 1.5 (0.66-1.25) mg/dL Glucose 109 H 99 (74-99) mg/dL Calcium 8.8 8.4 L (8.4-10.2) mg/dL Adrenal panel 07/03/23 07/04/23 Range/Units 11:19 05:03 Sodium 135 L 142 (137-145) mmol/L Potassium 4.6 4.3 (3.5-5.1) mmol/L Chloride 105 113 H (98-107) mmol/L Carbon Dioxide 16 L 19.3 L (22-30) mmol/L BUN 34 H 22.0 (9-20) mg/dL Creatinine 3.43 H 1.5 (0.66-1.25) mg/dL Glucose 109 H 99 (74-99) mg/dL Calcium 8.8 8.4 L (8.4-10.2) mg/dL Total Bilirubin 0.3 <0.2 L (0.2-1.3) mg/dL AST 18 13 L (17-59) U/L ALT 14 13 (4-49) U/L Alkaline Phosphatase 60 55 (38-126) U/L Total Protein 6.1 L 5.2 L (6.3-8.2) g/dL Albumin 3.6 3.6 L (3.5-5.0) g/dL
[2023-07-04 12:04] LABS: HCT 33.8 % (39.0-53.0); HGB 11.6 gm/dL (13.0-17.5); MCHC 34.4 g/dL (31.0-37.0); MCV 87.2 fL (80.0-100.0); Platelet Count 209 k/uL (150-450); RBC 3.88 m/uL (4.30-5.90); RDW 13.1 % (11.5-15.5); WBC 7.2 k/uL (3.8-10.6)
--- NOTE | 2023-07-04 12:37 | P.NPCON ---
History of Present Illness - Reason for Consult acute renal failure - History of Present Illness Reason for consultation: Acute kidney injury History of present illness: Patient is a 53-year-old male seen in renal consultation for acute kidney injury. Patient's creatinine in May 2021 was 0.9. This admission and was elevated at 3.43 and is down to 1.5 today. He's currently receiving IV fluids. Patient came to the hospital due to constipation going on for about 3-4 days. He was noted to have urinary retention and currently has a Melgar catheter. Kidney ultrasound showed atrophic right kidney with no evidence of hydronephrosis. He's being followed by surgery for the constipation which is attributed to his narcotic use. He is on MiraLAX and did have 2 bowel movements since admission. Denies any abdominal pain at this time. No gross hematuria. Blood pressure on the lower side at 100/63 this morning. Lisinopril is held. Additionally patient admits to taking Motrin 800 mg 3 times daily due to chronic pain. He denies history of diabetes. Denies history of coronary artery disease. Denies family history of renal disease. UA is fairly benign. No vomiting. Oral intake fair. Vital signs are stable. General: No acute distress. HEENT: Head exam is unremarkable. LUNGS: No audible rhonchi or wheezes. HEART: Rate and Rhythm are regular. ABDOMEN: Nontender. EXTREMITITES: No edema. Past Medical History Past Medical History: Hypertension Additional Past Medical History / Comment(s): urinary frequency , chronic pain, Vertigo History of Any Multi-Drug Resistant Organisms: None Reported Past Surgical History: No Surgical Hx Reported Past Anesthesia/Blood Transfusion Reactions: No Reported Reaction Past Psychological History: Anxiety, Depression Smoking Status: Never smoker Past Alcohol Use History: None Reported Past Drug Use History: None Reported - Past Family History Mother Family Medical History: Cancer Medications and Allergies Home Medications Medication Instructions Recorded Confirmed Type Omeprazole 20 mg PO BID 01/23/17 07/03/23 History Ibuprofen [Motrin] 800 mg PO Q8H PRN 06/27/21 07/03/23 History oxyCODONE-APAP 10-325MG [Percocet 1 tab PO TID PRN 06/27/21 07/03/23 History 10-325 mg] Ergocalciferol [Vitamin D2 (1250 1,250 mcg PO Q30D 07/03/23 07/03/23 History Mcg = [id number] Iu)] LORazepam [Ativan] 2 mg PO HS 07/03/23 07/03/23 History QUEtiapine FUMARATE [SEROquel] 300 mg PO HS 07/03/23 07/03/23 History atenoloL [Tenormin] 25 mg PO HS 07/03/23 07/03/23 History lisinopriL 40 mg PO DAILY 07/03/23 07/03/23 History Allergies Allergy/AdvReac Type Severity Reaction Status Date / Time No Known Allergies Allergy Verified 07/03/23 13:21 Physical Exam Vitals: Vital Signs Temp Pulse Pulse Resp BP BP Pulse Ox 07/04/23 07:18 97.8 F 90 17 100/63 98 07/04/23 01:41 98.4 F 94 16 106/70 97 07/03/23 20:00 105 H 07/03/23 19:53 97.9 F 103 H 16 121/68 96 07/03/23 17:25 104 H 07/03/23 15:55 98.3 F 117 H 19 145/89 98 07/03/23 15:48 106 H 07/03/23 14:15 98.1 F 104 H 18 110/67 97 07/03/23 12:58 106 H 18 134/75 99 Intake and Output 07/03/23 07/04/23 07/04/23 22:59 06:59 14:59 Intake Total 375 1140 Output Total 700 1050 Balance -325 90 Intake: Intake, IV Titration 375 900 Amount Sodium Chloride 0.9% 1, 375 900 000 ml @ 75 mls/hr IV . [id number] [facility] Rx#:[id number] Oral 240 Output: Urine 700 1050 Other: Voiding Method Indwelling Catheter Indwelling Catheter Weight 83.1 kg 83.1 kg Results - Lab Results Most recent lab results Calcium 8.4 mg/dL (8.7-10.3) L 07/04/23 05:03 Magnesium 2.4 mg/dL (1.5-2.4) 07/04/23 05:03 07/04/23 05:03 07/04/23 05:03 Assessment and Plan Plan: Assessment: 1. Acute kidney injury mostly prerenal secondary to NSAIDs and urinary retention. Creatinine 3.43 on admission and is 1.5 today. Creatinine 0.9 in May 2021. No hydronephrosis noted on kidney ultrasound. UA fairly benign. 2. Metabolic acidosis secondary to acute kidney injury. Better. 3. Urinary retention. Has Melgar catheter. 4. Benign hypertension. Blood pressure currently on the lower side. Plan: Maintain IV fluids. Decrease rate to 50 mL an hour. Add Flomax. Avoid nephrotoxins. Continue to monitor renal function and urine output. Continue to hold lisinopril. Thank you for the consultation. I will continue to follow the patient with you during his hospital stay.
[2023-07-04] MEDS ORDERED: MAG HYDROX/AL HYDROX/SIMETH 30 ML CUP PO PRN (13:45)
[2023-07-04] MEDS: TAMSULOSIN 0.4 MG CAP.ER.24H PO SCH (16:55)
[2023-07-04] MEDS: QUEtiapine 100 MG TAB PO SCH (21:47)
[2023-07-04] MEDS: atenoloL 25 MG TAB PO SCH (21:47)
[2023-07-04] MEDS: LORazepam 1 MG TAB PO SCH (21:47)
[2023-07-04] MEDS: ONDANSETRON 4 MG/2 ML VIAL IVP PRN (22:05)
--- NOTE | 2023-07-05 06:06 | PN ---
PROGRESS NOTE CHIEF COMPLAINT: Acute kidney injury and urinary retention. HISTORY OF PRESENT ILLNESS: This gentleman is doing fairly well. He is not complaining of any abdominal pain. PHYSICAL EXAMINATION: GENERAL: He is afebrile. VITAL SIGNS: Normal. CHEST: Clear. CARDIAC: Normal. ABDOMEN: Soft and nontender. IMPRESSION: Acute kidney injury with urinary retention and constipation. PLAN: Continue with IV fluids and continue to monitor his renal function. MMODL / IJN: [id number] /
[2023-07-05] MEDS: PANTOPRAZOLE 40 MG TABLET PO SCH ×2 (06:52→16:14)
[2023-07-05] MEDS: polyethylene glycoL 3350 17 GM POWD.PACK PO SCH ×3 (08:05→21:29)
--- NOTE | 2023-07-05 08:50 | P.GSCN ---
History of Present Illness Consult date: 07/05/23 Reason for Consult: Urinary retention Requesting physician: Omar Guerrero History of present illness: The patient is a 53-year-old white male admitted with constipation and abdominal bloating. He is known to me, and was last seen in the office in May 2020. He has an overactive bladder, and has been treated with antimuscarinic agents. When last seen in the office, he noted that his voiding symptoms worsened when he took Flexeril. Most recently, he was treated with trospium 20 mg twice a day, which he was taking up until the time of admission. Prior to admission, he states that he was experiencing a frequent urge to void. He denied dysuria and hematuria. He has been found to be in urinary retention, and a Melgar catheter was placed. Review of Systems - Constitutional Reports poor appetite - Gastrointestinal Reports bloating, Reports constipation - Genitourinary Reports as per HPI, Reports urinary frequency - Psychiatric Reports anxiety, Reports insomnia Past Medical History Past Medical History: Hypertension Additional Past Medical History / Comment(s): urinary frequency , chronic pain, Vertigo History of Any Multi-Drug Resistant Organisms: None Reported Past Surgical History: No Surgical Hx Reported Past Anesthesia/Blood Transfusion Reactions: No Reported Reaction Past Psychological History: Anxiety, Depression Smoking Status: Never smoker Past Alcohol Use History: None Reported Past Drug Use History: None Reported - Past Family History Mother Family Medical History: Cancer Medications and Allergies Home Medications Medication Instructions Recorded Confirmed Type Omeprazole 20 mg PO BID 01/23/17 07/03/23 History Ibuprofen [Motrin] 800 mg PO Q8H PRN 06/27/21 07/03/23 History oxyCODONE-APAP 10-325MG [Percocet 1 tab PO TID PRN 06/27/21 07/03/23 History 10-325 mg] Ergocalciferol [Vitamin D2 (1250 1,250 mcg PO Q30D 07/03/23 07/03/23 History Mcg = [id number] Iu)] LORazepam [Ativan] 2 mg PO HS 07/03/23 07/03/23 History QUEtiapine FUMARATE [SEROquel] 300 mg PO HS 07/03/23 07/03/23 History atenoloL [Tenormin] 25 mg PO HS 07/03/23 07/03/23 History lisinopriL 40 mg PO DAILY 07/03/23 07/03/23 History Allergies Allergy/AdvReac Type Severity Reaction Status Date / Time No Known Allergies Allergy Verified 07/03/23 13:21 Surgical - Exam Vital Signs Temp Pulse Resp BP Pulse Ox 98 F 100 18 87/57 98 07/03/23 10:04 07/03/23 10:04 07/03/23 10:04 07/03/23 10:04 07/03/23 10:04 - General well developed, well nourished, no distress - Respiratory normal respiratory effort - Abdomen Abdomen: soft, non tender, no guarding, no rigid, no rebound - Genitourinary Normal phallus, normal testes. Small left hydrocele. - Rectum Rectum: normal sphincter tone, no masses, other (Prostate mildly enlarged but smooth.) - Psychiatric oriented to time, oriented to person, oriented to place, speech is normal, memory intact Results - Labs 07/04/23 05:03 07/04/23 05:03 Abnormal Lab Results - Last 24 Hours (Table) 07/04/23 07/04/23 Range/Units 05:03 05:03 RBC 3.88 L (4.30-5.90) m/uL Hgb 11.6 L (13.0-17.5) gm/dL Hct 33.8 L (39.0-53.0) % Chloride 113 H (96-109) mmol/L Carbon Dioxide 19.3 L (21.6-31.8) mmol/L Est GFR (CKD-EPI) 55 L (>=60) Calcium 8.4 L (8.7-10.3) mg/dL Total Bilirubin <0.2 L (0.3-1.2) mg/dL AST 13 L (14-35) U/L Total Protein 5.2 L (6.2-8.2) d/dL Albumin 3.6 L (3.8-4.9) d/dL Diabetes panel 07/04/23 Range/Units 05:03 Sodium 142 (135-145) mmol/L Potassium 4.3 (3.5-5.5) mmol/L Chloride 113 H (96-109) mmol/L Carbon Dioxide 19.3 L (21.6-31.8) mmol/L BUN 22.0 (9.0-27.0) mg/dL Creatinine 1.5 (0.6-1.5) mg/dL Glucose 99 (70-110) mg/dL Calcium 8.4 L (8.7-10.3) mg/dL AST 13 L (14-35) U/L ALT 13 (10-49) U/L Alkaline Phosphatase 55 (41-126) U/L Total Protein 5.2 L (6.2-8.2) d/dL Albumin 3.6 L (3.8-4.9) d/dL Calcium panel 07/04/23 Range/Units 05:03 Calcium 8.4 L (8.7-10.3) mg/dL Albumin 3.6 L (3.8-4.9) d/dL Pituitary panel 07/04/23 Range/Units 05:03 Sodium 142 (135-145) mmol/L Potassium 4.3 (3.5-5.5) mmol/L Chloride 113 H (96-109) mmol/L Carbon Dioxide 19.3 L (21.6-31.8) mmol/L BUN 22.0 (9.0-27.0) mg/dL Creatinine 1.5 (0.6-1.5) mg/dL Glucose 99 (70-110) mg/dL Calcium 8.4 L (8.7-10.3) mg/dL Adrenal panel 07/04/23 Range/Units 05:03 Sodium 142 (135-145) mmol/L Potassium 4.3 (3.5-5.5) mmol/L Chloride 113 H (96-109) mmol/L Carbon Dioxide 19.3 L (21.6-31.8) mmol/L BUN 22.0 (9.0-27.0) mg/dL Creatinine 1.5 (0.6-1.5) mg/dL Glucose 99 (70-110) mg/dL Calcium 8.4 L (8.7-10.3) mg/dL Total Bilirubin <0.2 L (0.3-1.2) mg/dL AST 13 L (14-35) U/L ALT 13 (10-49) U/L Alkaline Phosphatase 55 (41-126) U/L Total Protein 5.2 L (6.2-8.2) d/dL Albumin 3.6 L (3.8-4.9) d/dL - Imaging US - kidney/bladder: report reviewed Assessment and Plan Assessment: The patient has a history of an overactive bladder, but now presents with urinary retention. Antimuscarinic agents, antidepressants, and constipation are all possible contributing factors. (1) Urinary retention Current Visit: Yes Status: Acute Code(s): R33.9 - RETENTION OF URINE, UNSPECIFIED SNOMED Code(s): 148986580 Plan: Hold trospium, and minimize the use of antidepressants if possible. Begin tamsulosin. Remove Melgar catheter after constipation has been treated for a voiding trial. Postvoid residuals should be checked to assess bladder emptying. Time with Patient: Greater than 30
[2023-07-05] MEDS ORDERED: LIDOCAINE 1% (10MG/ML) FOR IV START INTRADERMA PRN (10:18)
[2023-07-05 11:10] LABS: Magnesium 2.2 mg/dL (1.5-2.4)
[2023-07-05] MEDS ORDERED: LACTULOSE 20 GM/30 ML CUP PO ONE (11:15)
[2023-07-05 11:22] LABS: BUN/Creat Ratio 9.44 Ratio (12.00-20.00); Blood Urea Nitrogen 8.5 mg/dL (9.0-27.0); Calcium 8.9 mg/dL (8.7-10.3); Carbon Dioxide 23.4 mmol/L (21.6-31.8); Chloride 109 mmol/L (96-109); Glucose 95 mg/dL (70-110); Potassium 4.1 mmol/L (3.5-5.5); Sodium 142 mmol/L (135-145)
[2023-07-05] MEDS: oxyCODONE-APAP 10-325MG 1 EACH TAB PO PRN ×2 (11:37→21:30)
[2023-07-05] MEDS: LACTATED RINGERS 1,000 ML IV SCH (12:11)
--- NOTE | 2023-07-05 12:59 | P.PN ---
Subjective Patient is seen in follow for acute kidney injury. Renal function back to baseline. Has Melgar catheter. Nonoliguric. Oral intake good. No vomiting or diarrhea. Vital signs are stable. General: No acute distress. HEENT: Head exam is unremarkable. LUNGS: No audible rhonchi or wheezes. HEART: Rate and Rhythm are regular. ABDOMEN: Nontender. EXTREMITITES: No edema. Objective - Vital Signs Vital signs: Vital Signs Temp 98.4 F 07/05/23 07:09 Pulse 81 07/05/23 07:09 Resp 17 07/05/23 07:09 BP 121/75 07/05/23 07:09 Pulse Ox 97 07/05/23 07:09 FiO2 Intake & Output 07/04/23 07/05/23 07/05/23 18:59 06:59 18:59 Intake Total 10 Output Total 1300 500 300 Balance -5432 -490 -300 Weight 83.1 kg 83 kg Intake: IV 10 Invasive Line 3 10 Output: Urine 1300 500 300 Other: Voiding Method Indwelling Catheter Indwelling Catheter Indwelling Catheter # Voids 1 # Bowel Movements 1 - Labs CBC & Chem 7: 07/04/23 05:03 07/05/23 07:11 Labs: Abnormal Lab Results - Last 24 Hours (Table) 07/05/23 Range/Units 07:11 BUN 8.5 L (9.0-27.0) mg/dL BUN/Creatinine Ratio 9.44 L (12.00-20.00) Ratio Assessment and Plan Plan: Assessment: 1. Acute kidney injury mostly prerenal secondary to NSAIDs and urinary retention. Creatinine 3.43 on admission - 0.9 today. Creatinine 0.9 in May 2021. No hydronephrosis noted on kidney ultrasound. UA fairly benign. 2. Metabolic acidosis secondary to acute kidney injury. Better. 3. Urinary retention. Has Melgar catheter.on Flomax. Urology following. 4. Benign hypertension. Controlled. Plan: Hep-Lock IV fluids. Encourage oral intake. Avoid nephrotoxins. follow-up outpatient 1 week post discharge.
--- NOTE | 2023-07-05 14:04 | P.PN ---
Subjective Progress Note Date: 07/05/23 CHIEF COMPLAINT: Constipation HISTORY OF PRESENT ILLNESS: Patient reports having bowel movements yesterday. He ate breakfast this morning and complains of feeling bloated and did have one episode of vomiting yesterday. Afebrile. Hgb 11.6. Patient seen by urology for urinary retention. PHYSICAL EXAM: VITAL SIGNS: Reviewed. GENERAL: Well-developed in no acute distress. HEENT: No sclera icterus. Extraocular movements grossly intact. Moist buccal mucosa. Head is atraumatic, normocephalic. ABDOMEN: Soft. Diffuse tenderness. Mildly distended. Rectal: Small hemorrhoid at the anus NEUROLOGIC: Alert and oriented. Cranial nerves II through XII grossly intact. ASSESSMENT: 1. Constipation with chronic narcotic use 2. Hemorrhoids with occasional rectal bleeding 3. Urinary retention 4. Acute kidney injury PLAN: -Plan for colonoscopy on , 07/07/[address] Gan -Downgrade diet to full liquids -Start clear liquids tomorrow -Start GoLYTELY bowel prep tomorrow -We'll give 1 dose of lactulose today -Encourage patient to ambulate Physician Language Assistant note has been reviewed by physician. Signing provider agrees with the documented findings, assessment, and plan of care. Objective - Vital Signs Vital signs: Vital Signs Temp 98.4 F 07/05/23 13:54 Pulse 90 07/05/23 13:54 Resp 17 07/05/23 13:54 BP 120/71 07/05/23 13:54 Pulse Ox 97 07/05/23 13:54 FiO2 Intake & Output 07/04/23 07/05/23 07/05/23 18:59 06:59 18:59 Intake Total 10 Output Total 1300 500 300 Balance -1300 -490 -300 Weight 83.1 kg 83 kg Intake: IV 10 Invasive Line 3 10 Output: Urine 1300 500 300 Other: Voiding Method Indwelling Catheter Indwelling Catheter Indwelling Catheter # Voids 1 # Bowel Movements 1 - Labs CBC & Chem 7: 07/04/23 05:03 07/05/23 07:11 Labs: Abnormal Lab Results - Last 24 Hours (Table) 07/05/23 Range/Units 07:11 BUN 8.5 L (9.0-27.0) mg/dL BUN/Creatinine Ratio 9.44 L (12.00-20.00) Ratio
[2023-07-05] MEDS: SODIUM CHLORIDE 0.9% 1,000 ML IV SCH (16:11)
[2023-07-05] MEDS: TAMSULOSIN 0.4 MG CAP.ER.24H PO SCH (16:14)
[2023-07-05] MEDS: QUEtiapine 100 MG TAB PO SCH (21:29)
[2023-07-05] MEDS: LORazepam 1 MG TAB PO SCH (21:29)
[2023-07-05] MEDS: atenoloL 25 MG TAB PO SCH (21:29)
[2023-07-06] MEDS: PANTOPRAZOLE 40 MG TABLET PO SCH ×2 (06:49→17:38)
[2023-07-06] MEDS ORDERED: PEG 3350 (236 GM/BTL) + LYTES 4,000 ML BOTTLE PO ONE (09:00)
[2023-07-06] MEDS: oxyCODONE-APAP 10-325MG 1 EACH TAB PO PRN ×3 (09:16→22:03)
[2023-07-06 10:35] LABS: HCT 33.6 % (39.0-53.0); HGB 11.5 gm/dL (13.0-17.5); MCH 29.4 pg (25.0-35.0); MCHC 34.4 g/dL (31.0-37.0); MCV 85.6 fL (80.0-100.0); Mean Platelet Volume 7.6; Platelet Count 254 k/uL (150-450); RBC 3.93 m/uL (4.30-5.90); RDW 12.9 % (11.5-15.5); WBC 5.1 k/uL (3.8-10.6)
[2023-07-06 10:40] LABS: African American GFR (CKD) >90 (>60 ml/min/1.73 sqM); Anion Gap 4 mmol/L; Blood Urea Nitrogen 5 mg/dL (9-20); Calcium 8.4 mg/dL (8.4-10.2); Carbon Dioxide 29 mmol/L (22-30); Chloride 105 mmol/L (98-107); Glucose 93 mg/dL (74-99); Non-African American GFR(CKD) >90 (>60 ml/min/1.73 sqM); Potassium 3.9 mmol/L (3.5-5.1); Sodium 138 mmol/L (137-145)
[2023-07-06] MEDS: polyethylene glycoL 3350 17 GM POWD.PACK PO SCH ×2 (11:58→21:15)
--- NOTE | 2023-07-06 15:38 | P.PN ---
Subjective Patient is seen in follow for acute kidney injury. Renal function back to baseline. Has Melgar catheter. Nonoliguric. Oral intake good. No vomiting or diarrhea. Had bowel movement earlier today. Scheduled for colonoscopy tomorrow. Vital signs are stable. General: No acute distress. HEENT: Head exam is unremarkable. LUNGS: No audible rhonchi or wheezes. HEART: Rate and Rhythm are regular. ABDOMEN: Nontender. EXTREMITITES: No edema. Objective - Vital Signs Vital signs: Vital Signs Temp 98.1 F 07/06/23 08:09 Pulse 94 07/06/23 08:09 Resp 18 07/06/23 08:09 BP 143/78 07/06/23 08:09 Pulse Ox 98 07/06/23 08:09 FiO2 Intake & Output 07/05/23 07/06/23 07/06/23 18:59 06:59 18:59 Output Total 2500 700 Balance -2500 -700 Output: Urine 2500 700 Uretheral (Melgar) 1000 Other: Voiding Method Indwelling Catheter Indwelling Catheter Indwelling Catheter - Labs CBC & Chem 7: 07/06/23 10:03 07/06/23 10:03 Labs: Abnormal Lab Results - Last 24 Hours (Table) 07/06/23 07/06/23 Range/Units 10:03 10:03 RBC 3.93 L (4.30-5.90) m/uL Hgb 11.5 L (13.0-17.5) gm/dL Hct 33.6 L (39.0-53.0) % BUN 5 L (9-20) mg/dL Assessment and Plan Plan: Assessment: 1. Acute kidney injury mostly prerenal secondary to NSAIDs and urinary retention. Creatinine 3.43 on admission - 0.7 today. Creatinine 0.9 in May 2021. No hydronephrosis noted on kidney ultrasound. UA fairly benign. 2. Metabolic acidosis secondary to acute kidney injury. Resolved. 3. Urinary retention. Has Melgar catheter. On Flomax. Urology following. 4. Benign hypertension. Controlled. 5. Constipation. Surgery following. Colonoscopy tomorrow. Plan: Hep-Lock IV fluids. Encouraged oral intake. Avoid nephrotoxins. Follow-up outpatient 1 week post discharge.
--- NOTE | 2023-07-06 16:33 | P.PN ---
Subjective Progress Note Date: 07/06/23 CHIEF COMPLAINT: Constipation HISTORY OF PRESENT ILLNESS: Patient reports having bowel movements and flatus. No blood in his stools. Patient starting GoLYTELY bowel prep this morning. Scheduled for colonoscopy tomorrow. PHYSICAL EXAM: VITAL SIGNS: Reviewed. GENERAL: Well-developed in no acute distress. HEENT: No sclera icterus. Extraocular movements grossly intact. Moist buccal mucosa. Head is atraumatic, normocephalic. ABDOMEN: Soft. Diffuse tenderness. Mildly distended. Rectal: Small hemorrhoid at the anus NEUROLOGIC: Alert and oriented. Cranial nerves II through XII grossly intact. ASSESSMENT: 1. Constipation with chronic narcotic use 2. Hemorrhoids with occasional rectal bleeding 3. Urinary retention 4. Acute kidney injury PLAN: -Plan for colonoscopy on , 07/07/[address] Gan -Clear liquid diet today -Nothing by mouth after midnight -GoLYTELY bowel prep today Physician Cheesemaker note has been reviewed by physician. Signing provider agrees with the documented findings, assessment, and plan of care. Objective - Vital Signs Vital signs: Vital Signs Temp 98.1 F 07/06/23 08:09 Pulse 94 07/06/23 08:09 Resp 18 07/06/23 08:09 BP 143/78 07/06/23 08:09 Pulse Ox 98 07/06/23 08:09 FiO2 Intake & Output 07/05/23 07/06/23 07/06/23 18:59 06:59 18:59 Output Total 2500 700 Balance -2500 -700 Output: Urine 2500 700 Uretheral (Melgar) 1000 Other: Voiding Method Indwelling Catheter Indwelling Catheter Indwelling Catheter - Labs CBC & Chem 7: 07/06/23 10:03 07/06/23 10:03 Labs: Abnormal Lab Results - Last 24 Hours (Table) 07/06/23 07/06/23 Range/Units 10:03 10:03 RBC 3.93 L (4.30-5.90) m/uL Hgb 11.5 L (13.0-17.5) gm/dL Hct 33.6 L (39.0-53.0) % BUN 5 L (9-20) mg/dL
[2023-07-06] MEDS: ONDANSETRON 4 MG/2 ML VIAL IVP PRN (17:25)
[2023-07-06] MEDS: ACETAMINOPHEN TAB 325 MG TAB PO PRN (17:28)
[2023-07-06] MEDS: TAMSULOSIN 0.4 MG CAP.ER.24H PO SCH (17:38)
[2023-07-06] MEDS: SODIUM CHLORIDE 0.9% 1,000 ML IV SCH (17:40)
[2023-07-06] MEDS: LACTATED RINGERS 1,000 ML IV SCH (17:41)
--- NOTE | 2023-07-06 20:42 | PN ---
PROGRESS NOTE DATE OF SERVICE: 07/05/2023 CHIEF COMPLAINT: Urinary retention and constipation. HISTORY OF PRESENT ILLNESS: This gentleman is doing well, and he has had no problems. PHYSICAL EXAMINATION: VITAL SIGNS: Normal. CHEST: Clear. CARDIAC: Normal. ABDOMEN: Soft and nontender. : Catheter is still in place. IMPRESSION: 1. Urinary retention. 2. Constipation. PLAN: He could probably go home anytime. MMODL / IJN: [id number] /
--- NOTE | 2023-07-06 20:53 | PN ---
PROGRESS NOTE DATE OF SERVICE: 07/06/2023 CHIEF COMPLAINT: Urinary retention and constipation. HISTORY OF PRESENT ILLNESS: This gentleman is doing well. Catheter is still in. He is going for colonoscopy tomorrow. PHYSICAL EXAMINATION: GENERAL: He is afebrile. CHEST: Clear. CARDIAC: Normal. ABDOMEN: Soft, nontender. IMPRESSION: 1. Urinary retention. 2. Constipation. PLAN: Colonoscopy tomorrow and then home. MMODL / IJN: [id number] /
[2023-07-06] MEDS: atenoloL 25 MG TAB PO SCH (21:15)
[2023-07-06] MEDS: LORazepam 1 MG TAB PO SCH (21:15)
[2023-07-06] MEDS: QUEtiapine 100 MG TAB PO SCH (22:03)
[2023-07-07 05:53] LABS: HCT 31.3 % (39.0-53.0); HGB 10.9 gm/dL (13.0-17.5); MCH 29.2 pg (25.0-35.0); MCHC 34.6 g/dL (31.0-37.0); MCV 84.3 fL (80.0-100.0); Mean Platelet Volume 7.3; Platelet Count 257 k/uL (150-450); RBC 3.72 m/uL (4.30-5.90); RDW 12.9 % (11.5-15.5); WBC 4.9 k/uL (3.8-10.6)
[2023-07-07 06:04] LABS: African American GFR (CKD) >90 (>60 ml/min/1.73 sqM); Anion Gap 6 mmol/L; Blood Urea Nitrogen 4 mg/dL (9-20); Calcium 7.8 mg/dL (8.4-10.2); Carbon Dioxide 30 mmol/L (22-30); Chloride 103 mmol/L (98-107); Glucose 84 mg/dL (74-99); Non-African American GFR(CKD) >90 (>60 ml/min/1.73 sqM); Potassium 3.2 mmol/L (3.5-5.1); Sodium 139 mmol/L (137-145)
[2023-07-07] MEDS: PANTOPRAZOLE 40 MG TABLET PO SCH ×2 (06:11→17:24)
[2023-07-07] MEDS: oxyCODONE-APAP 10-325MG 1 EACH TAB PO PRN ×3 (06:12→20:21)
[2023-07-07] MEDS: polyethylene glycoL 3350 17 GM POWD.PACK PO SCH ×2 (07:37→20:21)
[2023-07-07] MEDS ORDERED: POTASSIUM CHLORIDE ER 20 MEQ TAB.ER PO STA (08:11)
[2023-07-07] MEDS ORDERED: IV FLUID CONTINUATION 1,000 ML IV ONE ×2 (10:53)
[2023-07-07] MEDS ORDERED: PROPOFOL 10 MG/ML 20 ML VIAL IV ONE (10:55)
--- NOTE | 2023-07-07 11:16 | P.OP ---
Date of Procedure: 07/07/23 Preoperative Diagnosis: Hemorrhoids Postoperative Diagnosis: Internal and external hemorrhoids Procedure(s) Performed: Colonoscopy Anesthesia: MAC Surgeon: Joseph Gan Pathology: none sent Condition: stable Disposition: PACU Description of Procedure: The patient's placed on the endoscopy table in the lateral position. He received IV sedation. Digital rectal exam was performed. This revealed internal and external hemorrhoids. Flexible colonoscope was then placed patient anus passed throughout the colon. The ileocecal valve was visually is. The patient a very poor colon prep. There is a large amount liquid stool which limited the view of the mucosa. Scope was withdrawn. There is no abnormalities seen however the view was quite limited due to the poor prep. The transverse colon, descending colon and sigmoid colon appeared normal. Scope was brought back the rectum this appeared normal. Scope was withdrawn and through the anus internal and external hemorrhoids are noted. Scope was withdrawn from patient.
--- NOTE | 2023-07-07 11:27 | P.PN ---
Subjective Patient is seen in follow for acute kidney injury. Renal function back to baseline. Has Melgar catheter. Nonoliguric. Oral intake good. No vomiting or diarrhea. Scheduled for colonoscopy today. Vital signs are stable. General: No acute distress. HEENT: Head exam is unremarkable. LUNGS: No audible rhonchi or wheezes. HEART: Rate and Rhythm are regular. ABDOMEN: Nontender. EXTREMITITES: No edema. Objective - Vital Signs Vital signs: Vital Signs Temp 98.5 F 07/07/23 07:09 Pulse 100 07/07/23 07:15 Resp 18 07/07/23 07:15 BP 141/80 07/07/23 07:09 Pulse Ox 93 L 07/07/23 07:09 FiO2 Intake & Output 07/06/23 07/07/23 07/07/23 18:59 06:59 18:59 Intake Total 600 100 Output Total 1300 Balance -1300 600 100 Weight 85.8 kg Intake: IV 100 Intake, IV Titration 600 Amount Sodium Chloride 0.9% 1, 600 000 ml @ 50 mls/hr IV . Q20H [facility] Rx#:[id number] Output: Urine 1300 Other: Voiding Method Indwelling Catheter Indwelling Catheter Indwelling Catheter # Voids 3 1 # Bowel Movements 3 1 - Labs CBC & Chem 7: 07/07/23 04:33 07/07/23 04:33 Labs: Abnormal Lab Results - Last 24 Hours (Table) 07/07/23 07/07/23 Range/Units 04:33 04:33 RBC 3.72 L (4.30-5.90) m/uL Hgb 10.9 L (13.0-17.5) gm/dL Hct 31.3 L (39.0-53.0) % Potassium 3.2 L (3.5-5.1) mmol/L BUN 4 L (9-20) mg/dL Calcium 7.8 L (8.4-10.2) mg/dL Assessment and Plan Plan: Assessment: 1. Acute kidney injury mostly prerenal secondary to NSAIDs and urinary retention. Creatinine 3.43 on admission - 0.69 today. No hydronephrosis noted on kidney ultrasound. UA fairly benign. 2. Metabolic acidosis secondary to acute kidney injury. Resolved. 3. Urinary retention. Has Melgar catheter. On Flomax. Urology following. 4. Benign hypertension. Controlled. 5. Constipation. Surgery following. Colonoscopy today. 6. Hypokalemia from poor intake and postobstructive diuresis. Plan: Hep-Lock IV fluids. Encouraged oral intake. Avoid nephrotoxins. Replace potassium. Follow-up outpatient 1 week post discharge.
[2023-07-07] MEDS: ACETAMINOPHEN TAB 325 MG TAB PO PRN ×2 (12:52→20:19)
--- NOTE | 2023-07-07 14:28 | P.PN ---
Subjective Progress Note Date: 07/07/23 CHIEF COMPLAINT: Constipation HISTORY OF PRESENT ILLNESS: Patient completed a bowel prep. History clear. Denies abdominal pain. Scheduled for colonoscopy today. PHYSICAL EXAM: VITAL SIGNS: Reviewed. GENERAL: Well-developed in no acute distress. ABDOMEN: Soft. Nontender NEUROLOGIC: Alert and oriented. Cranial nerves II through XII grossly intact. ASSESSMENT: 1. Constipation with chronic narcotic use 2. Hemorrhoids with occasional rectal bleeding 3. Urinary retention 4. Acute kidney injury PLAN: -Plan for colonoscopy today Physician Practice Administrator note has been reviewed by physician. Signing provider agrees with the documented findings, assessment, and plan of care. Objective - Vital Signs Vital signs: Vital Signs Temp 98.5 F 07/07/23 07:09 Pulse 100 07/07/23 07:15 Resp 18 07/07/23 07:15 BP 141/80 07/07/23 07:09 Pulse Ox 93 L 07/07/23 07:09 FiO2 Intake & Output 07/06/23 07/07/23 07/07/23 18:59 06:59 18:59 Intake Total 600 Output Total 1300 Balance -1300 600 Weight 85.8 kg Intake: Intake, IV Titration 600 Amount Sodium Chloride 0.9% 1, 600 000 ml @ 50 mls/hr IV . Q20H [facility] Rx#:[id number] Output: Urine 1300 Other: Voiding Method Indwelling Catheter Indwelling Catheter Indwelling Catheter # Voids 3 1 # Bowel Movements 3 1 - Labs CBC & Chem 7: 07/07/23 04:33 07/07/23 04:33 Labs: Abnormal Lab Results - Last 24 Hours (Table) 07/07/23 07/07/23 Range/Units 04:33 04:33 RBC 3.72 L (4.30-5.90) m/uL Hgb 10.9 L (13.0-17.5) gm/dL Hct 31.3 L (39.0-53.0) % Potassium 3.2 L (3.5-5.1) mmol/L BUN 4 L (9-20) mg/dL Calcium 7.8 L (8.4-10.2) mg/dL
[2023-07-07] MEDS: TAMSULOSIN 0.4 MG CAP.ER.24H PO SCH (17:24)
[2023-07-07] MEDS: atenoloL 25 MG TAB PO SCH (20:19)
[2023-07-07] MEDS: LORazepam 1 MG TAB PO SCH (20:20)
[2023-07-07] MEDS: QUEtiapine 100 MG TAB PO SCH (20:20)
[2023-07-07] MEDS: LACTATED RINGERS 1,000 ML IV SCH (23:05)
--- NOTE | 2023-07-08 00:42 | PN ---
PROGRESS NOTE DATE OF SERVICE: 07/07/2023 CHIEF COMPLAINT: Urinary retention. HISTORY OF PRESENT ILLNESS: This gentleman is doing well with the catheter still in place. He is going today for colonoscopy. PHYSICAL EXAMINATION: VITAL SIGNS: Normal. CHEST: Clear. CARDIAC: Normal. ABDOMEN: Soft, nontender. IMPRESSION: 1. Urinary retention. 2. Constipation. PLAN: Colonoscopy today. MMODL / IJN: [id number] /
[2023-07-08] MEDS: PANTOPRAZOLE 40 MG TABLET PO SCH ×2 (06:33→18:59)
[2023-07-08] MEDS: oxyCODONE-APAP 10-325MG 1 EACH TAB PO PRN ×2 (08:29→20:31)
[2023-07-08] MEDS: polyethylene glycoL 3350 17 GM POWD.PACK PO SCH ×2 (08:29→20:31)
[2023-07-08 09:15] LABS: Basophils % (A) 0 %; Eosinophils # (A) 0.2 k/uL (0-0.7); Eosinophils % (A) 5 %; HCT 32.9 % (39.0-53.0); HGB 11.3 gm/dL (13.0-17.5); Lymphocytes # (A) 0.9 k/uL (1.0-4.8); Lymphocytes % (A) 19 %; MCH 29.4 pg (25.0-35.0); MCHC 34.5 g/dL (31.0-37.0); MCV 85.2 fL (80.0-100.0); Mean Platelet Volume 7.9; Monocytes # (A) 0.5 k/uL (0-1.0); Monocytes % (A) 11 %; Neutrophils # (A) 3.1 k/uL (1.3-7.7); Neutrophils % (A) 64 %; Platelet Count 255 k/uL (150-450); RBC 3.86 m/uL (4.30-5.90); RDW 13.2 % (11.5-15.5); WBC 4.8 k/uL (3.8-10.6)
[2023-07-08 09:25] LABS: African American GFR (CKD) >90 (>60 ml/min/1.73 sqM); Anion Gap 4 mmol/L; Blood Urea Nitrogen 5 mg/dL (9-20); Calcium 8.3 mg/dL (8.4-10.2); Carbon Dioxide 28 mmol/L (22-30); Chloride 106 mmol/L (98-107); Glucose 116 mg/dL (74-99); Non-African American GFR(CKD) >90 (>60 ml/min/1.73 sqM); Potassium 3.5 mmol/L (3.5-5.1); Sodium 138 mmol/L (137-145)
[2023-07-08] MEDS ORDERED: POTASSIUM CHLORIDE ER 20 MEQ TAB.ER PO STA (11:43)
--- NOTE | 2023-07-08 11:43 | P.PN ---
Subjective Patient is seen in follow for acute kidney injury. Renal function back to baseline. Has Melgar catheter. Nonoliguric. Oral intake good. No vomiting or diarrhea. Vital signs are stable. General: No acute distress. HEENT: Head exam is unremarkable. LUNGS: No audible rhonchi or wheezes. HEART: Rate and Rhythm are regular. ABDOMEN: Nontender. EXTREMITITES: No edema. Objective - Vital Signs Vital signs: Vital Signs Temp 98.3 F 07/08/23 07:07 Pulse 80 07/08/23 07:15 Resp 17 07/08/23 07:15 BP 147/84 07/08/23 07:07 Pulse Ox 99 07/08/23 07:07 FiO2 Intake & Output 07/07/23 07/08/23 07/08/23 18:59 06:59 18:59 Intake Total 100 480 Output Total 750 1000 1100 Balance -650 -520 -1100 Weight 67 kg Intake: IV 100 Oral 480 Output: Urine 750 1000 1100 Other: Voiding Method Indwelling Catheter Indwelling Catheter # Voids 1 # Bowel Movements 1 - Labs CBC & Chem 7: 07/08/23 08:24 07/08/23 08:24 Labs: Abnormal Lab Results - Last 24 Hours (Table) 07/08/23 07/08/23 Range/Units 08:24 08:24 RBC 3.86 L (4.30-5.90) m/uL Hgb 11.3 L (13.0-17.5) gm/dL Hct 32.9 L (39.0-53.0) % Lymphocytes # 0.9 L (1.0-4.8) k/uL BUN 5 L (9-20) mg/dL Glucose 116 H (74-99) mg/dL Calcium 8.3 L (8.4-10.2) mg/dL Assessment and Plan Plan: Assessment: 1. Acute kidney injury mostly prerenal secondary to NSAIDs and urinary retention. Creatinine 3.43 on admission - 0.69 today. No hydronephrosis noted on kidney ultrasound. UA fairly benign. 2. Metabolic acidosis secondary to acute kidney injury. Resolved. 3. Urinary retention. Has Melgar catheter. On Flomax. Urology following. 4. Benign hypertension. 5. Constipation. Surgery following. Colonoscopy showed internal and external hemorrhoids. 6. Hypokalemia from poor intake and postobstructive diuresis. Plan: Encouraged oral intake. Avoid nephrotoxins. Replace potassium. Follow-up outpatient 1 week post discharge.
[2023-07-08 14:34] VITALS: BMI 20.6
--- NOTE | 2023-07-08 14:45 | P.PN ---
Subjective Progress Note Date: 07/08/23 CHIEF COMPLAINT: Constipation HISTORY OF PRESENT ILLNESS: Patient status post colonoscopy results showing internal and external hemorrhoids. Vision lying in bed comfortably. Denies any abdominal pain. Tolerating diet. Denies any nausea vomiting. WBC 4.8 Hgb 11.3 patient did have a low-grade temp of 100.1 last night with tachycardia. Now improved. Patient seen and examined with Dr. daniel PHYSICAL EXAM: VITAL SIGNS: Reviewed. GENERAL: Well-developed in no acute distress. ABDOMEN: Soft. Nontender. Nondistended NEUROLOGIC: Alert and oriented. Cranial nerves II through XII grossly intact. ASSESSMENT: 1. Constipation with chronic narcotic use. Now resolved 2. Internal and external hemorrhoids noted on colonoscopy 3. Urinary retention 4. Acute kidney injury PLAN: -Patient can be discharged from surgical standpoint -Recommend outpatient hemorrhoidectomy Physician Rumper note has been reviewed by physician. Signing provider agrees with the documented findings, assessment, and plan of care. Objective - Vital Signs Vital signs: Vital Signs Temp 98.7 F 07/08/23 13:30 Pulse 86 07/08/23 13:30 Resp 18 07/08/23 13:30 BP 164/99 07/08/23 13:30 Pulse Ox 97 07/08/23 13:30 FiO2 Intake & Output 07/07/23 07/08/23 07/08/23 18:59 06:59 18:59 Intake Total 100 480 Output Total 750 1000 1100 Balance -650 -520 -1100 Weight 67 kg Intake: IV 100 Oral 480 Output: Urine 750 1000 1100 Other: Voiding Method Indwelling Catheter Indwelling Catheter # Voids 1 # Bowel Movements 1 - Labs CBC & Chem 7: 07/08/23 08:24 07/08/23 08:24 Labs: Abnormal Lab Results - Last 24 Hours (Table) 07/08/23 07/08/23 Range/Units 08:24 08:24 RBC 3.86 L (4.30-5.90) m/uL Hgb 11.3 L (13.0-17.5) gm/dL Hct 32.9 L (39.0-53.0) % Lymphocytes # 0.9 L (1.0-4.8) k/uL BUN 5 L (9-20) mg/dL Glucose 116 H (74-99) mg/dL Calcium 8.3 L (8.4-10.2) mg/dL
[2023-07-08] MEDS: TAMSULOSIN 0.4 MG CAP.ER.24H PO SCH (18:59)
[2023-07-08] MEDS: LORazepam 1 MG TAB PO SCH (20:31)
[2023-07-08] MEDS: QUEtiapine 100 MG TAB PO SCH (20:31)
[2023-07-08] MEDS: atenoloL 25 MG TAB PO SCH (20:31)
[2023-07-09] MEDS: PANTOPRAZOLE 40 MG TABLET PO SCH (06:57)
[2023-07-09] MEDS: LACTATED RINGERS 1,000 ML IV SCH ×2 (06:59→16:00)
[2023-07-09 07:37] VITALS: RESP 17; TEMP 98.1
[2023-07-09] MEDS: polyethylene glycoL 3350 17 GM POWD.PACK PO SCH (07:56)
[2023-07-09] MEDS: oxyCODONE-APAP 10-325MG 1 EACH TAB PO PRN ×2 (07:56→15:35)
--- NOTE | 2023-07-09 09:21 | P.PN ---
Subjective Progress Note Date: 07/09/23 Principal diagnosis: Urinary retention The patient underwent colonoscopy, which showed no significant abnormalities. Melgar catheter was removed yesterday. He states that he is voiding without difficulty. He describes his stream as a "fire hose", and denies urgency. Objective - Vital Signs Vital signs: Vital Signs Temp 98.1 F 07/09/23 07:06 Pulse 86 07/09/23 07:06 Resp 17 07/09/23 07:06 BP 152/97 07/09/23 07:06 Pulse Ox 94 L 07/09/23 07:06 FiO2 Intake & Output 07/08/23 07/09/23 07/09/23 18:59 06:59 18:59 Intake Total 950 Output Total 1100 Balance -150 Weight 67 kg 68.5 kg Intake: Oral 950 Output: Urine 1100 Other: Voiding Method Indwelling Catheter Toilet Toilet # Voids 2 - Constitutional General appearance: Present: average body habitus, no acute distress - Gastrointestinal General gastrointestinal: Present: soft. Absent: distended, tenderness - Psychiatric Psychiatric: Present: A&O x's 3 - Labs CBC & Chem 7: 07/08/23 08:24 07/08/23 08:24 Labs: Abnormal Lab Results - Last 24 Hours (Table) 07/08/23 Range/Units 08:24 BUN 5 L (9-20) mg/dL Glucose 116 H (74-99) mg/dL Calcium 8.3 L (8.4-10.2) mg/dL Assessment and Plan Assessment: The patient has a history of an overactive bladder, but now presents with urinary retention. Melgar catheter was removed yesterday and he has been able to void without difficulty. (1) Urinary retention Current Visit: Yes Status: Acute Code(s): R33.9 - RETENTION OF URINE, UNSPECIFIED SNOMED Code(s): 780112178 Plan: Bladder Scan will be utilized to check the post-void residual. If the patient was verified to be emptying his bladder adequately, he may be discharged home without the Melgar catheter. I would suggest that he be treated with tamsulosin for 1 month, and to remain off trospium unless his overactive bladder symptoms recur to a significant degree. He will follow up with me in the office. Please notify me if I can be of any further assistance.
[2023-07-09 13:55] VITALS: BP 139/81; PULSE 88
[2023-07-09] MEDS: TAMSULOSIN 0.4 MG CAP.ER.24H PO SCH (16:12)
--- NOTE | 2023-07-13 15:27 | PN ---
PROGRESS NOTE DATE OF SERVICE: 07/09/2023 CHIEF COMPLAINT: Urinary retention, urinary tract infection, constipation, hemorrhoids, and acute kidney injury. HISTORY OF PRESENT ILLNESS: This gentleman is doing well and is supposed to be going home today. Melgar catheter has been removed. PHYSICAL EXAMINATION: CHEST: Clear. CARDIAC: Normal. ABDOMEN: Soft and nontender. EXTREMITIES: Normal. IMPRESSION: 1. Urinary retention. 2. Urinary tract infection. 3. Constipation. 4. Hemorrhoids. 5. Acute kidney injury. PLAN: Probably home today. MMODL / IJN: [id number] /
--- NOTE | 2023-07-13 15:27 | DS ---
DISCHARGE SUMMARY CHIEF COMPLAINT: Urinary retention. HISTORY OF PRESENT ILLNESS AND PHYSICAL EXAMINATION: Details of this man's history and physical can be found in the initial workup. LABORATORY STUDIES: While he was in the hospital, he had laboratory studies, details of which can be found in the laboratory section of his chart. COURSE IN THE HOSPITAL: After admission, he was placed on bedrest, started on intravenous fluids and Melgar catheter drainage. He was treated for urinary tract infection. He was taken for colonoscopy, which was unremarkable. He was doing well, and it was felt that he could go home on the . He will go home on max. FINAL DIAGNOSES: 1. Urinary retention. 2. Urinary tract infection. 3. Hemorrhoids. 4. Acute kidney injury. OPERATIONS: Colonoscopy. CONSULTATIONS: Surgery. DARIUSZ / JOHNY: [id number] /
--- NOTE | 2023-07-13 15:28 | PN ---
PROGRESS NOTE DATE OF SERVICE: 07/08/2023 CHIEF COMPLAINT: Urinary retention and constipation with hemorrhoids. HISTORY OF PRESENT ILLNESS: This gentleman is doing fairly well, and he has colonoscopy. It is expected he could probably go home pretty soon. However, he does have a temperature of 100.1 today. He denies chest pain, shortness of breath, abdominal pain, etc. PHYSICAL EXAMINATION: CHEST: Clear. CARDIAC: Normal. ABDOMEN: Soft and nontender. IMPRESSION: 1. Urinary retention. 2. Constipation. 3. Hemorrhoids. 4. Fever of unknown origin. PLAN: Probably home today or tomorrow. MMODL / IJN: [id number] /
== END 2023-07-09 16:24 | disposition home or self-care (01) | DRG 683 ==
LOC: EC 09:53 → 4SSUR 12:39
PROVIDERS: ADMIT Family Medicine; ATTEND Family Medicine
PROC: 0DJD8ZZ Inspection of Lower Intestinal Tract, Via Natural or Artificial Opening Endoscopic (ICD-10-PCS; principal; 2023-07-04)
DX: N17.9 Acute kidney failure, unspecified (principal); N39.0 Urinary tract infection, site not specified; K59.03 Drug induced constipation; T40.605A Adverse effect of unspecified narcotics, initial encounter; R33.9 Retention of urine, unspecified; N14.0 Analgesic nephropathy; K64.4 Residual hemorrhoidal skin tags; T39.395A Adverse effect of other nonsteroidal anti-inflammatory drugs [NSAID], initial encounter; E87.6 Hypokalemia; K64.8 Other hemorrhoids; T50.2X5A Adverse effect of carbonic-anhydrase inhibitors, benzothiadiazides and other diuretics, initial encounter; F32.A Depression, unspecified; F41.9 Anxiety disorder, unspecified; G89.29 Other chronic pain; R42 Dizziness and giddiness; I10 Essential (primary) hypertension; N32.81 Overactive bladder; N26.1 Atrophy of kidney (terminal); Z71.3 Dietary counseling and surveillance; Z28.21 Immunization not carried out because of patient refusal; Z79.891 Long term (current) use of opiate analgesic; Z79.899 Other long term (current) drug therapy
CPT/HCPCS: 36415; 45378; 74018; 76770; 80048; 80053; 81001; 83605; 83690; 83735; 85025; 85027; 96360; 96361; 99285